=== PATIENT | female | born 1955 | race Caucasian/White ===

== ENCOUNTER 2017-12-13 06:17 | Day surgery (SDC) | payer OTHER, SELFPAY ==
--- NOTE | 2017-12-13 | PATH_ITS ---
[facility] Accession Number: [id number] . 01 Material submitted: . PART A: ANTRAL BIOPSIES PART B: ESOPHAGEAL BIOPSIES PART C: RANDOM COLON BIOPSIES PART D: LEFT COLON POLYP AT 40 CM . 02 Diagnosis: A. Antrum, Biopsies: Gastric antral and body mucosa with chronic gastritis. Negative for Helicobacter organisms by immunohistochemistry. Negative for intestinal metaplasia. Negative for dysplasia and malignancy. . B. Esophagus, Biopsies: Squamous epithelium with parakeratosis. Negative for fungal organisms on PAS stain. 0-1 eosinophils per 40x high-powered field. Negative for dysplasia and malignancy. . C. Random Colon, Biopsies: Colonic mucosa with no diagnostic abnormality. Negative for active or microscopic colitis. Negative for granulomata, dysplasia and malignancy. . D. Left Colon Polyp At 40 CM: Tubular adenoma. BFI12/15/2017 . 02 Electronically signed: . Azma Ortega MD, PhD, Pathologist NPI- [id number] . 01 Gross description: . Received four formalin-filled containers each labeled with the patient's name. . A. In a container labeled antral are four 0.1 to 0.3 cm portions of tissue. Entirely submitted in cassette A. B. In a container labeled esophageal are three less than 0.1 to 0.2 cm portions of tissue and mucoid material. Entirely submitted in cassette B. C. In a container labeled random colon are multiple less than 0.1 to 0.2 cm portions of tissue, which are filtered, wrapped and entirely submitted in cassette C. D. In a container labeled left colon polyp at 40 cm are two 0.2 to 0.3 cm portions of tissue. Entirely submitted in cassette D. ([facility] [place]:[id number]) /[facility] . 02 Microscopic: . A. An immunohistochemical stain is performed to evaluate for Helicobacter organisms and is negative. A control stain shows appropriate reactivity. . B. A PAS stain is performed to evaluate for fungal organisms and is negative. A control stain shows appropriate reactivity. . * This test was developed and its performance characteristics determined by [facility]. It has not been cleared or approved by the U.S. Food and Drug Administration. The FDA has determined that such clearance or approval is not necessary. This test is used for clinical purposes. It should not be regarded as investigational or for research. . 02 Pathologist provided ICD-10: K29.70, D12.6 . 02 CPT . 650598, 848892, 741415, 495406, F20919, 552407 Performed at: 01 [facility] [address] [id number] MD Oswaldo Cuadra MD Phone: [phone] Performed at: 02 [facility] [address] [place] [id number] MD David Castillo MD Phone: [phone]
[2017-12-13 06:57] VITALS: BP 130/77; PULSE 72; RESP 16; TEMP 36.3; BMI 29.5
[2017-12-13] MEDS: SODIUM CHLORIDE 0.9% 1,000 ML 200 ML IV (07:07)
--- NOTE | 2017-12-13 07:58 | PM.HP.1 ---
History of Present Illness Date Patient Seen: 12/13/17 Time Patient Seen: 07:58 Chief complaint: [id number] Narrative: 62-year-old female seen November 04, 2017 in the office as an outpatient for persistent intermittent nausea and regurgitation of food. Symptoms appear to be related to her longstanding reflux disease which is intermittently controlled with histamine cherelle therapy only. She also requires colorectal screening since it has been 10 years from her last examination. Currently she denies any abdominal pain, unintended weight loss, significant change in bowel habits, melena, hematochezia, or bright red blood per rectum. Please see the above record dictated November 04, 2017 for further details. Patient History Medical History Insomnia, persistent (Chronic) Obstructive sleep apnea of adult (Chronic) Chronic low back pain (Acute) Uterine fibroid (Acute) Gastroesophageal reflux disease (Chronic) Hyperlipidemia (Chronic) Mild acid reflux (Chronic) PVC (premature ventricular contraction) (Chronic) Seasonal allergies (Chronic) Surgical History H/O hysterectomy for benign disease (Acute) History of colonoscopy (Acute) History of right breast biopsy (Acute) Family & Social History Family History: Reviewed 12/13/17 by Jean Liang MD Social History: household members spouse Tobacco & Substance use: Smoking Status Never smoker alcohol intake never Meds Home Medications Medication Instructions Recorded Confirmed Type estradiol 2 mg PO Q DAY #0 05/25/11 11/09/17 History medroxyprogesterone 2.5 mg PO Q DAY #0 05/25/11 11/09/17 History aspirin 81 mg tablet,delayed 81 mg PO DAILY 11/04/17 11/09/17 History release cholecalciferol (vitamin D3) 4,000 4,000 unit PO DAILY 11/04/17 11/09/17 History unit capsule diazepam 5 mg tablet 5 mg PO BID-TID PRN 11/04/17 11/09/17 History fluticasone NASAL 11/04/17 11/09/17 History lamotrigine 25 mg tablet 25 mg PO BID 11/04/17 11/09/17 History loratadine 10 mg capsule 10 mg PO DAILY 11/04/17 11/09/17 History multivitamin tablet 1 tab PO DAILY 11/04/17 11/09/17 History simvastatin 20 mg tablet 20 mg PO QPM 11/04/17 11/09/17 History Allergies Allergy/AdvReac Type Severity Reaction Status Date / Time codeine [CODEINE] Allergy Mild HIVES Unverified 12/13/17 06:45 venom-honey bee Allergy Verified 12/13/17 06:45 Review of Systems Review of Systems Complete review of systems completed in dated November 04, 2017. No changes since that time. Please see that record for further details. All systems reviewed & are unremarkable except as noted in HPI and below Exam Vital Signs (past 8 hours): - 12/13/17 06:57 Temperature 97.3 F L Pulse Rate 72 Respiratory Rate 16 Blood Pressure 130/77 H Oxygen Delivery Method Room Air Narrative Exam Narrative: Well-nourished well-developed female in no acute distress. Alert oriented x3 Sclera nonicteric Neck supple Chest clear to auscultation Abdomen soft, nondistended, nontender Extremities show no clubbing, cyanosis, or edema Objective Labs Labs: No changes since November 04, 2017 Assessment & Plan Plan: Assessment/Plan Narrative: 62-year-old female with reflux disease and regurgitation. She also requires colorectal screening. Again, the details of my discussion with the patient are documented clearly on my note of November 04, 2017. I reiterate today my recommendations for EGD and colonoscopy. Technical details of the procedures were again reviewed with the patient. Risks, benefits, alternatives as documented in my note of November 04, 2017 were again reviewed today with the patient. Her was at the bedside. All questions were answered to her satisfaction once again, and she voiced understanding. Consent was on the chart and updated. We will proceed today with EGD and colonoscopy as planned.
--- NOTE | 2017-12-13 08:01 | PM.PREOP ---
Pre-operative Note Interval Note Pre-op Check: Yes History & Physical Reviewed by Physician, Yes Exam Performed and Yes History & Physical exam performed today by Physician Changes: No H&P completed within 30 days and has changed as indicated here:: Patient once again seen and examined today. Her history physical examination has been documented today. Of note, there have been no significant changes since my initial examination and history documented on November 04, 2017. We will proceed with EGD and colonoscopy today as planned. ASA Class (for procedural sedation): II
[2017-12-13] MEDS: TETRACAINE/BENZOCAINE/BUTAMBEN (CETACAINE) BOTTLE 1 SPRAY TOP (08:40)
[2017-12-13] MEDS: LIDOCAINE 4% SOLN 50 ML 20 ML TOP (08:41)
[2017-12-13] MEDS: fentaNYL 250 MCG/5 ML INJ IV (08:42)
[2017-12-13] MEDS: MIDAZOLAM 5 MG/5 ML VIAL IV (08:44)
--- NOTE | 2017-12-13 09:04 | PM.OP.ENDO ---
Operative Date/Time/Diagnoses Date of procedure: 12/13/17 Time of procedure: 09:04 Pre-op diagnosis: 1. Nausea, reflux, and regurgitation 2. Colorectal screening Post-op diagnosis: other (1. Significant erosive gastritis and mild esophagitis 2. Colon polyp at 40 cm) Procedure & Clinicians Study performed: 1. Esophagogastroduodenoscopy with biopsy 2. Colonoscopy with cold forceps polypectomy and random biopsies Same procedure as scheduled: Yes Indications: 62-year-old female who presented with intractable intermittent nausea and regurgitation of food. Occasional vomiting was also noted. She required colorectal screening since it was 10 years from her last exam as well. She was therefore recommended to undergo EGD and colonoscopy. Surgeon: Jean Liang Procedure Notes SCOAP/Timeout: Yes Procedure in detail: After obtaining informed consent the patient was brought to the endoscopy suite and attached all appropriate cardiopulmonary monitors. Nasal cannula oxygen was applied. Oropharynx was anesthetized with topical anesthetic. Patient was placed in left lateral decubitus position and a bite block was inserted. SCOAP time out was performed per standard protocol. Intravenous sedation was achieved per the surgeon using fentanyl and Versed. Gastroscope was inserted over the tongue to the oropharynx where the upper esophageal sphincter was identified. Esophagus was easily intubated and the scope was advanced under direct visualization of the esophageal lumen into the stomach which insufflated easily with air. There was noted to be some scant old blood present but no obvious gastric ulcers or neoplasms. Diffuse moderate gastritis was noted. Gastritis appeared to be most pronounced in the antrum and incisura. Pylorus was grossly normal and widely patent. Pylorus was easily intubated and the scope was advanced to the 2nd portion the duodenum. Mild duodenitis was noted but no peptic ulcers or other abnormalities. Scope was slowly withdrawn and the duodenum was meticulously and circumferentially examined. No other abnormalities were appreciated. The bulb of the duodenum was without disease. Scope was withdrawn back into the stomach where retroflexed view showed no hiatal hernia. Again findings are as above. Antral biopsies were taken. Stomach was suctioned of fluid and air and the scope withdrawn into the esophagus. Z-line was located at 30 8 cm from the incisors. Esophagus was slowly meticulously examined circumferentially as the scope was withdrawn. There was minimal esophagitis and biopsies were taken above the gastroesophageal junction. Hemostasis was verified. Scope was withdrawn through the mouth and this portion of the procedure was terminated. Bite block was removed. Patient was turned 180? for colonoscopy. Digital rectal examination revealed no masses or abnormalities. Colonoscope was inserted into the rectum and the bowel was insufflated with carbon dioxide. Under direct visualization of the colonic lumen the scope was advanced to the cecum where the appendiceal orifice and ileocecal valve were identified. Terminal ileum was intubated. I should note that the patient's colon was quite redundant and tortuous. She required multiple position maneuvers as well as abdominal pressure to achieve the cecum. Bowel preparation was adequate although some places required copious irrigation to be visualized. Terminal ileum was noted to be normal and the scope was slowly withdrawn. The colon was otherwise grossly normal but random biopsies were taken. She had a single polyp at 40 cm removed with cold forceps. Hemostasis was again verified. No other significant abnormalities including diverticulosis was identified. Retroflex view of the distal rectum and anus showed no other abnormalities or masses. No neoplasms. Internal hemorrhoids were normal. Scope was withdrawn and the procedure terminated. Patient taken recovery stable condition. Scope withdrawal time: 12:29 min Sedation minutes: 53 Findings: gastritis, polyp and other findings (Mild duodenitis) Specimen(s): other (1. Antral biopsies 2. Esophageal biopsies 3. Random colon biopsies 4. Colon polyp at 40 cm) Complications: none Recommendations: Colonscopy in 5 years, High fiber diet, No ASA/NSAIDS and Start medication(s) (Prescription for omeprazole) Plan for aftercare: 1. Discharge to home 2. Follow up in surgery Clinic in 1-2 weeks to discuss results Follow up: weeks (1-2 weeks in surgery clinic) Disposition: PACU
[2017-12-13 09:05] VITALS: BP 90/60; PULSE 72; RESP 14; TEMP 36.8; O2SAT 98
[2017-12-13 09:10] VITALS: BP 102/63; PULSE 68; RESP 14; O2SAT 98
[2017-12-13 09:18] VITALS: BP 101/62; PULSE 70; RESP 16; TEMP 36.2
--- NOTE | 2017-12-13 09:19 | SUR.PHASEII ---
DR PAGAN AT BEDSIDE SPEAKING WITH PT AND , PT TOLERATING PO JUICE AND CRACKERS.
[2017-12-13 09:35] VITALS: BP 105/70; PULSE 63; RESP 16; TEMP 36.2; O2SAT 100
== END 2017-12-13 09:41 | disposition home or self-care (01) ==
PROVIDERS: PCP Internal Medicine; Visit Provider Surgery
PROC: 0DJ08ZZ Inspection of Upper Intestinal Tract, Via Natural or Artificial Opening Endoscopic (ICD-10-PCS; CPT 43235; principal; 2017-12-13 07:45)
PROC: 0DJD8ZZ Inspection of Lower Intestinal Tract, Via Natural or Artificial Opening Endoscopic (ICD-10-PCS; CPT 45378; 2017-12-13 07:45)
DX: Z12.11 Encounter for screening for malignant neoplasm of colon (principal); K21.9 Gastro-esophageal reflux disease without esophagitis; K29.80 Duodenitis without bleeding; R11.10 Vomiting, unspecified; G47.33 Obstructive sleep apnea (adult) (pediatric); E78.5 Hyperlipidemia, unspecified; I49.3 Ventricular premature depolarization; D12.6 Benign neoplasm of colon, unspecified; K29.70 Gastritis, unspecified, without bleeding
CPT/HCPCS: 45380; 43239; 99152; 99153; J2250; J3010

== ENCOUNTER → 2018-03-31 08:09 | Outpatient (CLI) | payer OTHER, SELFPAY ==
--- NOTE | 2018-03-31 08:10 | DI.US.S_ITS ---
PROCEDURE: US ABDOMEN COMPLETE INDICATIONS: RIGHT UPPER QUADRANT PAIN WITH VOMITING TECHNIQUE: Real-time scanning was performed of the abdominal and retroperitoneal organs, with image documentation. COMPARISON: [facility], US, ABDOMEN COMPLETE, 05/26/2013, 8:37. FINDINGS: Liver: Liver is normal in size and homogeneous in echotexture. Gallbladder: No gallstones identified. Normal gallbladder wall. No pericholecystic fluid. Negative sonographic Flores sign. Biliary ducts: Intrahepatic bile ducts are non-dilated. Extrahepatic bile duct caliber measures 6.0 mm. Normal is 6-7 mm or less in diameter, or 10 mm or less post-cholecystectomy. Pancreas: Visualized portions of the pancreas are sonographically normal. Spleen: Spleen is normal in size and homogeneous in echotexture. Kidneys: Kidneys are normal in size and echotexture. Right kidney measures 11.1 cm long; left kidney measures 12.2 cm long. No hydronephrosis or nephrolithiasis. No solid masses. Aorta: Visualized aorta is normal in caliber at less than 3 cm. Iliacs: Proximal common iliac arteries are normal in caliber at less than 2.5 cm. IVC: Intrahepatic inferior vena cava is patent. Miscellaneous: No free abdominal fluid. IMPRESSION: No source for right upper quadrant pain identified. Dictated by: Westley Griffith [facility] Interpreted: John Mayfield MD on 03/31/2018 at 8:59 Approved by: John Mayfield M.D. on 04/01/2018 at 13:05
== END ==
PROVIDERS: PCP Internal Medicine; Visit Provider Surgery
DX: R10.11 Right upper quadrant pain (principal); R11.10 Vomiting, unspecified
CPT/HCPCS: 76700

== ENCOUNTER → 2018-04-18 07:56 | Outpatient (CLI) | payer OTHER, SELFPAY ==
--- NOTE | 2018-04-18 | DI.MG.S_ITS ---
BILATERAL DIGITAL SCREENING MAMMOGRAM 3D/2D WITH CAD: 04/18/2018 CLINICAL: Routine screening. Comparison is made to exams dated: 03/31/2017 mammogram, 02/07/2016 mammogram, and 01/14/2015 mammogram - [facility]. The tissue of both breasts is heterogeneously dense. This may lower the sensitivity of mammography. Current study was also evaluated with a Computer Aided Detection (CAD) system. There are benign post operative findings in the left breast. There is a mole marker on both breasts. No significant masses, calcifications, or other findings are seen in either breast. There has been no significant interval change. IMPRESSION: There is no mammographic evidence of malignancy. A 1 year screening mammogram is recommended. This exam was interpreted at Station ID: [id number]. NOTE: For mammograms, a report in lay terms will be sent to the patient. Approximately 15% of breast malignancies will not be visualized mammographically. In the management of a palpable breast mass, a negative mammogram must not discourage biopsy of a clinically suspicious lesion. Electronically Signed By: Cristian michael/nancie:04/18/2018 17:31:26 letter sent: Normal Exam ACR BI-RADS Category 2: Benign Finding(s) 3342F
== END ==
PROVIDERS: PCP Physician Assistant; Visit Provider Physician Assistant
DX: Z12.31 Encounter for screening mammogram for malignant neoplasm of breast (principal)
CPT/HCPCS: 77063; 77067

== ENCOUNTER → 2018-05-18 17:08 | Outpatient (CLI) | payer OTHER, SELFPAY ==
[2018-05-18 18:10] LABS: Estimated Glomerular Filt Rate > 60.0 mL/min (>60)
== END ==
PROVIDERS: PCP Physician Assistant; Visit Provider Internal Medicine Gastroenterology
DX: Z01.812 Encounter for preprocedural laboratory examination (principal)
CPT/HCPCS: 36415; 82565

== ENCOUNTER → 2018-11-22 07:23 | Outpatient (CLI) | payer OTHER, SELFPAY ==
[2018-11-22 08:12] LABS: Add Manual Diff / Slide Review NO; Basophils Absolute Auto 0 /uL (0-100); Basophils Percent Auto 1.2 % (0-2); Eosinophils Absolute Auto 100 /uL (0-450); Eosinophils Percent Auto 2.4 % (2-4); Hematocrit 36.8 % (36-46); Hemoglobin 12.5 g/dL (12.0-16.0); Lymphocytes Absolute Auto 1200 /uL (1100-4500); Lymphocytes Percent Auto 32.5 % (25-40); Mean Corpuscular HGB Conc 33.9 % (30-36); Mean Corpuscular Hemoglobin 33.6 PG (26-34); Monocytes Absolute Auto 300 /uL (0-900); Monocytes Percent Auto 9.1 % (3-14); Neutrophils Absolute Auto 2000 /uL (1500-7000); Neutrophils Percent Auto 54.8 % (50-75); Platelet Count 217 X10^3/uL (150-400); Red Blood Cell Count 3.72 X10^6/uL (4.0-5.2); Red Cell Distribution Width 12.9 % (11.6-14.8); White Blood Cell Count 3.7 X10^3/uL (4.5-11.0)
[2018-11-22 08:14] LABS: Alanine Aminotransferase 12 IU/L (9-52); Albumin 4.2 g/dL (3.5-5.0); Albumin Globulin Ratio 1.4 (1.0-2.8); Alkaline Phosphatase 90 U/L (38-126); Aspartate Aminotransferase 22 IU/L (14-36); Bilirubin Total 0.4 mg/dL (0.2-1.3); Blood Urea Nitrogen 12 mg/dL (7-17); Calcium 9.4 mg/dL (8.4-10.2); Carbon Dioxide 27 mmol/L (22-32); Chloride 104 mmol/L (98-107); Cholesterol 175 mg/dL (140-199); Estimated Glomerular Filt Rate > 60.0 mL/min (>60); Glucose 84 mg/dL (80-110); HDL Cholesterol 58 mg/dL (40-60); HEMOLYSIS < 15 (0-50); LDL Cholesterol Calculated 88 mg/dL (<100); Potassium 3.8 mmol/L (3.4-5.1); Sodium 140 mmol/L (137-145); Total Protein 7.2 g/dL (6.3-8.2); Triglycerides 143 mg/dL (35-150)
== END ==
PROVIDERS: PCP Physician Assistant; Visit Provider Physician Assistant
DX: E78.2 Mixed hyperlipidemia (principal); E83.42 Hypomagnesemia
CPT/HCPCS: 36415; 80053; 80061; 83735; 85025

== ENCOUNTER → 2018-12-21 09:11 | Outpatient (CLI) | payer OTHER, SELFPAY ==
--- NOTE | 2018-12-21 | DI.ECHO.S_ITS ---
[facility] +---------+ : : [address] : : : : [address] : : : : Phone: [phone]+ Echocardiogram Report + + :Name: NILDA SHIRLEY Study Date: 12/21/2018 Height: 69 in : :[facility] Exam Location: [facility] Weight: 210 lb : : Gender: Female BSA: 2.1 m2 : :: 1955 Age: 63 yrs BP: 116/68 mmHg: :Reason For Study: PRE SYNCOPE : : Performed By: Christiano Powers : :Referring: SPENCER TEE : + + Interpretation Summary There is normal left ventricular wall thickness. The ejection fraction is estimated to be 60-65%. There are no focal wall motion abnormalities. Diastolic parameters suggest a relaxation abnormality of the left ventricle, consistent with probable normal filling pressures. The right ventricle is normal in size and function. Pulmonary artery pressures cannot be estimated because of the lack of a measurable TR jet velocity. The left atrium is mildly dilated. Right atrial size is normal. There is no significant valvular heart disease. The aortic root is normal size. Procedure: A two-dimensional transthoracic echocardiogram with color flow and Doppler was performed. The study quality was technically good. There is no prior echocardiogram noted for this patient. The patient was in normal sinus rhythm during the exam. Left Ventricle: There is normal left ventricular wall thickness. Left ventricular size is at the upper limits of normal. The ejection fraction is estimated to be 60-65%. There are no focal wall motion abnormalities. Diastolic parameters suggest a relaxation abnormality of the left ventricle, consistent with probable normal filling pressures. Right Ventricle: The right ventricle is normal in size and function. Atria: The left atrium is mildly dilated. Right atrial size is normal. The interatrial septum is intact with no evidence for an atrial septal defect. Mitral Valve: The mitral valve is normal in structure and function. There is no mitral regurgitation noted. Aortic Valve: The aortic valve is trileaflet. The aortic valve opens well. No aortic regurgitation is present. Tricuspid Valve: The tricuspid valve is normal in structure and function. No tricuspid regurgitation. Pulmonary artery pressures cannot be estimated because of the lack of a measurable TR jet velocity. Pulmonic Valve: The pulmonic valve is normal in structure and function. There is trace pulmonic regurgitation. There is no significant valvular heart disease. Great Vessels: The aortic root is normal size. The dimensions of the ascending aorta are normal. The aortic arch is at the upper limits of normal in size. The pulmonary artery is normal size. The IVC is of normal diameter and collapses greater than 50% with a sniff. This suggests a low right atrial pressure of 3 mm Hg. Pericardium/ Pleura There is no pericardial effusion. There is no pleural effusion. MMode/2D Measurements & Calculations LVIDd: 5.8 cm LVOT diam: 2.2 cm LVIDs: 3.2 cm Ao root diam: 3.4 cm FS: 43.8 % Aortic Jxn: 2.9 cm EPSS: 0.70 cm asc Aorta Diam: 3.3 cm IVSd: 0.82 cm Ao Arch Diam (Prox Trans): 3.1 cm LVPWd: 0.87 cm LV cardoso. diameter/BSA (cm/m^2): 2.7 LV sys. diameter/BSA (cm/m^2): 1.5 LA dimension: 4.3 cm RA long axis: 5.1 cm LA A2 area: 25.2 cm2 RA area: 16.8 cm2 LA A4 area: 22.9 cm2 RA vol: 46.7 ml LA length (vol): 5.7 cm RA : 22.1 ml/m2 LA vol: 86.2 ml IVC diam: 1.5 cm LA vol index: 40.9 ml/m2 Doppler Measurements & Calculations Ao V2 max: 126.7 cm/sec LVOT Max Blaise: 107.9 cm/sec Ao V2 mean: 88.5 cm/sec LV V1 max P.7 mmHg Ao max P.4 mmHg LV V1 VTI: 25.2 cm Ao mean P.5 mmHg NIALL(I,D): 3.5 cm2 Ao V2 VTI: 28.0 cm NIALL(V,D): 3.3 cm2 sev ratio: 0.90 NIALL indexed to BSA (cm^2/m^2): 1.7 MV E max blaise: 57.3 cm/sec PA V2 max: 66.9 cm/sec MV A max blaise: 69.5 cm/sec PA V2 mean: 52.7 cm/sec MV E/A: 0.83 PA mean P.2 mmHg Med Peak E' Blaise: 8.1 cm/sec PA pr(Accel): 26.6 mmHg E/E' med: 7.1 PA Accel Time: 0.11 sec Lat Peak E' Blaise: 9.9 cm/sec E/E' lat: 5.8 E/e' average: 6.5 MV dec time: 0.20 sec SV(LVOT): 98.6 ml Reading Physician:12:08 PM
[2018-12-21 10:42] LABS: Add Manual Diff / Slide Review NO; Basophils Absolute Auto 0 /uL (0-100); Basophils Percent Auto 0.7 % (0-2); Eosinophils Absolute Auto 100 /uL (0-450); Eosinophils Percent Auto 1.7 % (2-4); Hematocrit 38.7 % (36-46); Lymphocytes Absolute Auto 1300 /uL (1100-4500); Lymphocytes Percent Auto 22.8 % (25-40); Mean Corpuscular HGB Conc 33.6 % (30-36); Mean Corpuscular Hemoglobin 31.8 PG (26-34); Mean Corpuscular Volume 94.6 fL (80-100); Monocytes Absolute Auto 500 /uL (0-900); Monocytes Percent Auto 8.9 % (3-14); Neutrophils Absolute Auto 3800 /uL (1500-7000); Neutrophils Percent Auto 65.9 % (50-75); Platelet Count 241 X10^3/uL (150-400); Red Blood Cell Count 4.09 X10^6/uL (4.0-5.2); Red Cell Distribution Width 12.9 % (11.6-14.8); White Blood Cell Count 5.8 X10^3/uL (4.5-11.0)
== END ==
PROVIDERS: PCP Physician Assistant; Visit Provider Internal Medicine
DX: R55 Syncope and collapse (principal); D72.829 Elevated white blood cell count, unspecified
CPT/HCPCS: 36415; 85025; 93306

== ENCOUNTER 2019-03-23 15:12 | Emergency (ER) | payer OTHER, SELFPAY ==
[2019-03-23 15:16] VITALS: BP 155/87; PULSE 87; RESP 18; TEMP 36.4; O2SAT 100
[2019-03-23 15:58] LABS: Add Manual Diff / Slide Review NO; Basophils Absolute Auto 0 /uL (0-100); Basophils Percent Auto 0.5 % (0-2); Eosinophils Absolute Auto 0 /uL (0-450); Eosinophils Percent Auto 0.8 % (2-4); Hematocrit 39.5 % (36-46); Hemoglobin 13.7 g/dL (12.0-16.0); Lymphocytes Absolute Auto 600 /uL (1100-4500); Lymphocytes Percent Auto 13.2 % (25-40); Mean Corpuscular HGB Conc 34.6 % (30-36); Mean Corpuscular Hemoglobin 31.4 PG (26-34); Mean Corpuscular Volume 90.7 fL (80-100); Monocytes Absolute Auto 400 /uL (0-900); Monocytes Percent Auto 8.6 % (3-14); Neutrophils Absolute Auto 3800 /uL (1500-7000); Neutrophils Percent Auto 76.9 % (50-75); Platelet Count 202 X10^3/uL (150-400); Red Blood Cell Count 4.36 X10^6/uL (4.0-5.2); White Blood Cell Count 4.9 X10^3/uL (4.5-11.0)
--- NOTE | 2019-03-23 15:58 | ED_ITS ---
HPI - Abdominal Pain <Magda BETH Stanley-BC - Last Filed: 03/23/19 18:25> General Chief Complaint: Abdominal Pain Stated Complaint: GI issues- nausea/bloating Time Seen by Provider: 03/23/19 15:17 Source: patient Mode of arrival: Ambulatory Limitations: no limitations History of Present Illness HPI narrative: The patient is a 63-year-old female nonsmoker who presents with her for chief complaint of abdominal pain and bloating with nausea. She states that she has had these episodes on and off for the past several years, that it has been getting worse recently. She states that she has had abdominal pain bloating and nausea since Wednesday. She has vomited once. She denies any fevers. She states that she sees [facility] in [place] and has had multiple and discussed these, colonoscopy is etc. She states that her gallbladder is been looked at and found to be okay. She denies any dysuria urgency or frequency. She states that she has been told that she needs to come to the emergency department to be evaluated if she has 1 of these episodes, and preferably obtain a CT abdomen pelvis with contrast. She states her next step is to get a balloon endoscope. Related Data Home Medications Medication Instructions Recorded Confirmed medroxyprogesterone 2.5 mg PO Q DAY #0 05/25/11 01/20/19 cholecalciferol (vitamin D3) 4,000 4,000 unit PO DAILY 11/04/17 01/20/19 unit capsule diazepam 5 mg tablet 5 mg PO BID-TID PRN 11/04/17 01/20/19 fluticasone NASAL 11/04/17 01/20/19 loratadine 10 mg capsule 10 mg PO DAILY 11/04/17 01/20/19 multivitamin 1 tab PO DAILY 11/04/17 01/20/19 simvastatin 20 mg tablet 20 mg PO QPM 11/04/17 01/20/19 Respironics Remstar CPAP #1 ea 01/23/19 01/23/19 Previous Rx's Medication Instructions Recorded omeprazole 40 mg PO DAILY #60 cap 12/13/17 ondansetron 4 mg PO Q6H PRN #14 tab 03/23/19 Allergies Allergy/AdvReac Type Severity Reaction Status Date / Time codeine [CODEINE] Allergy Mild HIVES Verified 12/29/17 09:14 venom-honey bee Allergy Verified 12/29/17 09:14 Review of Systems <GREGG Cooney - Last Filed: 03/23/19 18:25> Review of Systems Narrative: GENERAL: Denies chills, fatigue, malaise, fever, sweats. HEENT: Denies sinus pain, ear pain, sore throat, difficulty swallowing, dizziness. RESPIRATORY: Denies dyspnea, cough, wheezing, hemoptysis, sputum. CARDIOVASCULAR: Denies chest pain, palpitations, orthopnea, edema, GASTROINTESTINAL: See HPI : Denies dysuria, frequency, incontinence, hematuria, urinary retention. MUSCULOSKELETAL: denies weakness, joint pain, or bony pain SKIN: Denies rash, skin lesions, or other NEUROLOGIC: Denies weakness, headache, numbness, change in speech, confusion, seizures, incoordination. PSYCHIATRIC: No concerning psychosocial issues. 12 point review of systems is negative except for those stated above Patient History <GREGG Cooney - Last Filed: 03/23/19 18:25> Medical History Chronic low back pain (Acute) Gastroesophageal reflux disease (Chronic) Hyperlipidemia (Chronic) Insomnia, persistent (Chronic) Mild acid reflux (Chronic) Obstructive sleep apnea of adult (Chronic) PVC (premature ventricular contraction) (Chronic) Seasonal allergies (Chronic) Uterine fibroid (Acute) Surgical History H/O hysterectomy for benign disease (Acute) History of colonoscopy (Acute) History of right breast biopsy (Acute) Family History Mother Hypertension Family/Other Cancer Father Cancer Brother Diabetes mellitus Grandfather Diabetes mellitus Grandmother Cancer Social History marital status: details: bright Carlos, lives in [place] household members: spouse lives independently: Yes caregiver/support person: No housing: house education level: college occupational status: employed Smoking Status: Never smoker alcohol intake: never Substance Use Type: does not use Exam <GREGG Cooney - Last Filed: 03/23/19 18:25> Narrative Exam Narrative: GENERAL: This is a well-nourished, well-developed patient, in no acute distress HEAD: Atraumatic. Normocephalic. No temporal or scalp tenderness. EYES: Pupils equal round and reactive. Extraocular motions intact. No scleral icterus. No injection or drainage. ENT: Nose without bleeding, purulent drainage or septal hematoma. Throat without erythema, tonsillar hypertrophy or exudate. Uvula midline. Airway patent. NECK: Trachea midline. No JVD or lymphadenopathy. Supple, nontender, no meningeal signs. CARDIOVASCULAR: Regular rate and rhythm without murmurs, gallops, or rubs. RESPIRATORY: Clear to auscultation. Breath sounds equal bilaterally. No wheezes, rales, or rhonchi. No cough. No increased respiratory effort. No accessory muscle use. GASTROINTESTINAL: Abdomen soft, diffusely tender, nondistended. No hepato- splenomegaly, or palpable masses. No guarding. EXTREMITIES: No clubbing, cyanosis, or edema. No joint tenderness, effusion, or edema noted. BACK: Nontender without deformity or crepitance. No flank tenderness. NEURO: AOx3. SKIN: No rash or erythema on visible skin Initial Vital Signs Initial Vital Signs: Vital Signs Temperature 97.5 F L 03/23/19 15:16 Pulse Rate 87 03/23/19 15:16 Respiratory Rate 18 03/23/19 15:16 Blood Pressure 155/87 H 03/23/19 15:16 Pulse Oximetry 100 03/23/19 15:16 <Sofia Giron MD - Last Filed: 03/29/19 07:38> Initial Vital Signs Initial Vital Signs: Vital Signs Temperature 97.5 F L 03/23/19 15:16 Pulse Rate 87 03/23/19 15:16 Respiratory Rate 18 03/23/19 15:16 Blood Pressure 155/87 H 03/23/19 15:16 Pulse Oximetry 100 03/23/19 15:16 Course <BETH Cooney- - Last Filed: 03/23/19 18:25> Orders Ordered: Discontinued Medications Sodium Chloride (Normal Saline 0.9%) 1,000 mls @ 150 mls/hr IV CONT YOSEPH Last Infusion: 03/23/19 18:27 Dose: 0 mls/hr Documented by: Admin: 03/23/19 16:04 Dose: 150 mls/hr Documented by: MARIO Ondansetron HCl (Zofran) 4 mg IV NOW ONE Stop: 03/23/19 15:50 Last Admin: 03/23/19 16:04 Dose: 4 mg Documented by: MARIO Ondansetron HCl (Zofran Odt Prepack) 1 bottle MISC SEEINSTR ONE Stop: 03/23/19 18:00 Last Admin: 03/23/19 18:28 Dose: 1 bottle Documented by: MARIO Vital Signs Vital signs: Vital Signs - 8 hr 03/23/19 15:16 03/23/19 18:11 Temperature 97.5 F L Pulse Rate 87 67 Respiratory Rate 18 18 Blood Pressure 155/87 H Blood Pressure [Left Arm] 111/59 L Pulse Oximetry 100 98 <Sofia Giron MD - Last Filed: 03/29/19 07:38> Orders Ordered: Discontinued Medications Sodium Chloride (Normal Saline 0.9%) 1,000 mls @ 150 mls/hr IV CONT YOSEPH Last Infusion: 03/23/19 18:27 Dose: 0 mls/hr Documented by: Admin: 03/23/19 16:04 Dose: 150 mls/hr Documented by: MARIO Ondansetron HCl (Zofran) 4 mg IV NOW ONE Stop: 03/23/19 15:50 Last Admin: 03/23/19 16:04 Dose: 4 mg Documented by: MARIO Ondansetron HCl (Zofran Odt Prepack) 1 bottle MISC SEEINSTR ONE Stop: 03/23/19 18:00 Last Admin: 03/23/19 18:28 Dose: 1 bottle Documented by: MARIO Vital Signs Vital signs: Vital Signs - 8 hr 03/23/19 15:16 03/23/19 18:11 Temperature 97.5 F L Pulse Rate 87 67 Respiratory Rate 18 18 Blood Pressure 155/87 H Blood Pressure [Left Arm] 111/59 L Pulse Oximetry 100 98 MDM - Abdominal Pain <GREGG Cooney - Last Filed: 03/23/19 18:25> Lab Data Result diagrams: 03/23/19 15:45 03/23/19 15:45 Labs: Lab Results 03/23/19 03/23/19 Range/Units 15:45 15:45 WBC 4.9 (4.5-11.0) X10^3/uL RBC 4.36 (4.0-5.2) X10^6/uL Hgb 13.7 (12.0-16.0) g/dL Hct 39.5 (36-46) % MCV 90.7 (80-100) fL MCH 31.4 (26-34) PG MCHC 34.6 (30-36) % RDW 13.0 (11.6-14.8) % Plt Count 202 (150-400) X10^3/uL Neut % (Auto) 76.9 H (50-75) % Lymph % (Auto) 13.2 L (25-40) % [place] % (Auto) 8.6 (3-14) % Eos % (Auto) 0.8 L (2-4) % Baso % (Auto) 0.5 (0-2) % Neut # (Auto) 3800 (8184-2469) /uL Lymph # (Auto) 600 L (8920-7203) /uL [place] # (Auto) 400 (0-900) /uL Eos # (Auto) 0 (0-450) /uL Baso # (Auto) 0 (0-100) /uL Sodium 137 (137-145) mmol/L Potassium 3.4 (3.4-5.1) mmol/L Chloride 103 (98-107) mmol/L Carbon Dioxide 28 (22-32) mmol/L BUN 9 (7-17) mg/dL Creatinine 0.70 (0.52-1.04) mg/dL Estimated GFR > 60.0 (>60) mL/min BUN/Creatinine Ratio 12.9 (6-22) Glucose 100 (80-110) mg/dL Calcium 9.0 (8.4-10.2) mg/dL Total Bilirubin 0.5 (0.2-1.3) mg/dL AST 44 H (14-36) IU/L ALT 36 H (<35) IU/L Alkaline Phosphatase 84 (38-126) U/L Total Protein 7.0 (6.3-8.2) g/dL Albumin 4.2 (3.5-5.0) g/dL Globulin 2.8 (1.7-4.1) g/dL Albumin/Globulin Ratio 1.5 (1.0-2.8) Amylase 79 (30-110) U/L Lipase 46 (23-300) U/L Imaging Data CT scan - abdomen: Radiologist's impression: [address] [address] [address] Scan Report Signed Patient: Frannie Adhikari JMR#: [id number] : 4Acct:[id number] Age/Sex: 63 / FDate of Service: 03/23/19 Loc: ED Accession Number: [id number] Procedure: CT abdomen pelvis w con Ordering Provider: Magda Stanley EDITORIAL CARTOONIST-BC PROCEDURE: CT ABDOMEN PELVIS W CON INDICATIONS: Abdominal pain, bloating TECHNIQUE: After the administration of intravenous contrast, 5 mm thick sections acquired from the diaphragms to the symphysis. 5 mm thick coronal and sagittal reformats were performed. For radiation dose reduction, the following was used: automated exposure control, adjustment of mA and/or kV according to patient size. COMPARISON: None. FINDINGS: Image quality: Excellent. ABDOMEN: Lung bases: There is mild atelectasis bilaterally. Heart size is normal. Solid organs: Evaluation of the liver demonstrates no focal hepatic lesions. The gallbladder appears within normal limits without calcified gallstones. Biliary system is non-dilated. Pancreas enhances normally. No peripancreatic fat stranding or fluid collections. No pancreatic duct dilatation. The spleen is normal in size. No adrenal nodules. Kidneys demonstrate no hydronephrosis. There is a duplicated left renal collecting system. Peritoneum and bowel: Stomach, small bowel, and colon loops are normal in caliber and wall thickness. The appendix is not discretely visualized and may be surgically absent. No pericecal inflammatory changes. There is colonic diverticulosis without acute diverticulitis. No free fluid or air. Nodes and vessels: No retroperitoneal or mesenteric adenopathy by size criteria. There are multiple mildly prominent subcentimeter mesenteric lymph nodes within the upper abdomen measuring up to approximately 0.9 cm in short axis. There is mild hazy indistinct fat stranding of the mesentery. Aorta and inferior vena cava are normal in caliber. Miscellaneous: No ventral hernias. PELVIS: Genitourinary: Bladder wall thickness is normal. There is moderate distention of the urinary bladder. There is a large heterogeneous mass within the right aspect of the uterus compatible with an intramural fibroid. This measures up to approximately 7.3 x 5.0 x 7.1 cm. Miscellaneous: No inguinal hernias or adenopathy. Bones: No suspicious bony lesions. No vertebral body compression fractures. IMPRESSION: 1. Prominent subcentimeter mesenteric lymph nodes with mild hazy fat stranding of the mesentery. The findings are nonspecific but likely reflect sequelae of an infectious or inflammatory process such as sclerosing mesenteritis. A neoplastic process is not excluded but considered less likely. 2. Duplicated left renal collecting system without hydronephrosis or definite s equelae of reflux. 3. Large uterine mass likely represents an intramural fibroid. Dictated by: Oswaldo Hinds M.D. on 03/23/2019 at 17:34 Approved by: Oswaldo Hinds M.D. on 03/23/2019 at 17:42 MDM Narrative Medical decision making narrative: The patient is a 63-year-old female who presents with a chief complaint of abdominal pain and bloating which has been worked up by Gastroenterology. She states that she is supposed to come to the emergency department for imaging if she has a flare. She is hemodynamically stable, does have pain to palpation so I did obtain imaging. I discussed at length the CT results including prominent lymph nodes, the inability to rule out neoplastic process. She did feel better with a single dose of Zofran in the emergency department, so I did give her prescription thereof. Encourage PCP follow-up in the next few days as well as following up with GI. Patient states appreciation, has no questions or concerns about half an states understanding of return precautions as well as follow-up care. She was able tolerate p.o. fluids in the emergency department. <Sofia Giron MD - Last Filed: 03/29/19 07:38> Lab Data Labs: Lab Results 03/23/19 03/23/19 Range/Units 15:45 15:45 WBC 4.9 (4.5-11.0) X10^3/uL RBC 4.36 (4.0-5.2) X10^6/uL Hgb 13.7 (12.0-16.0) g/dL Hct 39.5 (36-46) % MCV 90.7 (80-100) fL MCH 31.4 (26-34) PG MCHC 34.6 (30-36) % RDW 13.0 (11.6-14.8) % Plt Count 202 (150-400) X10^3/uL Neut % (Auto) 76.9 H (50-75) % Lymph % (Auto) 13.2 L (25-40) % [place] % (Auto) 8.6 (3-14) % Eos % (Auto) 0.8 L (2-4) % Baso % (Auto) 0.5 (0-2) % Neut # (Auto) 3800 (8799-6861) /uL Lymph # (Auto) 600 L (8178-6312) /uL [place] # (Auto) 400 (0-900) /uL Eos # (Auto) 0 (0-450) /uL Baso # (Auto) 0 (0-100) /uL Sodium 137 (137-145) mmol/L Potassium 3.4 (3.4-5.1) mmol/L Chloride 103 (98-107) mmol/L Carbon Dioxide 28 (22-32) mmol/L BUN 9 (7-17) mg/dL Creatinine 0.70 (0.52-1.04) mg/dL Estimated GFR > 60.0 (>60) mL/min BUN/Creatinine Ratio 12.9 (6-22) Glucose 100 (80-110) mg/dL Calcium 9.0 (8.4-10.2) mg/dL Total Bilirubin 0.5 (0.2-1.3) mg/dL AST 44 H (14-36) IU/L ALT 36 H (<35) IU/L Alkaline Phosphatase 84 (38-126) U/L Total Protein 7.0 (6.3-8.2) g/dL Albumin 4.2 (3.5-5.0) g/dL Globulin 2.8 (1.7-4.1) g/dL Albumin/Globulin Ratio 1.5 (1.0-2.8) Amylase 79 (30-110) U/L Lipase 46 (23-300) U/L Discharge Plan Departure Patient Disposition: Home Clinical Impression: Nausea Abdominal pain Qualifiers: Abdominal location: generalized Qualified Code(s): R10.84 - Generalized abdominal pain Discharge Date/Time: 03/23/19 18:40 Instructions: DI for Abdominal Pain-Adult, DI for Nausea -- Adult Activity Restrictions/Additional Instructions: Today we did a CT of your abdomen and pelvis. I have given you a copy of her results. I have given you a prescription of Zofran as well as a take-home pack Please follow up with primary care provider as well as your GI provider Prescriptions: New ondansetron 4 mg tablet,disintegrating 4 mg PO Q6H PRN (Reason: nausea and vomiting) Qty: 14 RF: 0 No Action medroxyprogesterone 2.5 MG tablet 2.5 mg PO Q DAY Qty: 0 RF: 0 simvastatin 20 mg tablet 20 mg PO QPM RF: 0 loratadine 10 mg capsule 10 mg PO DAILY RF: 0 fluticasone NASAL RF: 0 diazepam [Valium] 5 mg tablet 5 mg PO BID-TID PRN (Reason: Pain (Scale Score 4-6)) RF: 0 cholecalciferol (vitamin D3) 4,000 unit capsule 4,000 unit PO DAILY RF: 0 multivitamin [Daily Multi-Vitamin] tablet 1 tab PO DAILY RF: 0 omeprazole 40 mg capsule,delayed release(DR/EC) 40 mg PO DAILY Qty: 60 RF: 1 (DME) Respironics Remstar CPAP Qty: 1 RF: 0 Referrals: Arleth Cooper PA-C [Primary Care Provider] -
[2019-03-23 16:00] VITALS: BP 118/65; PULSE 70; RESP 16; O2SAT 98
[2019-03-23] MEDS: SODIUM CHLORIDE 0.9% 1,000 ML 150 ML IV (16:04)
[2019-03-23] MEDS: ONDANSETRON 4 MG/2 ML INJ IV (16:04)
[2019-03-23 16:09] LABS: Alanine Aminotransferase 36 IU/L (<35); Albumin 4.2 g/dL (3.5-5.0); Albumin Globulin Ratio 1.5 (1.0-2.8); Alkaline Phosphatase 84 U/L (38-126); Amylase 79 U/L (30-110); Aspartate Aminotransferase 44 IU/L (14-36); BUN Creatinine Ratio 12.9 (6-22); Bilirubin Total 0.5 mg/dL (0.2-1.3); Blood Urea Nitrogen 9 mg/dL (7-17); Carbon Dioxide 28 mmol/L (22-32); Chloride 103 mmol/L (98-107); Estimated Glomerular Filt Rate > 60.0 mL/min (>60); Globulin 2.8 g/dL (1.7-4.1); Glucose 100 mg/dL (80-110); HEMOLYSIS < 15 (0-50); Lipase 46 U/L (23-300); Potassium 3.4 mmol/L (3.4-5.1); Sodium 137 mmol/L (137-145)
--- NOTE | 2019-03-23 16:13 | DI.CT.S_ITS ---
PROCEDURE: CT ABDOMEN PELVIS W CON INDICATIONS: Abdominal pain, bloating TECHNIQUE: After the administration of intravenous contrast, 5 mm thick sections acquired from the diaphragms to the symphysis. 5 mm thick coronal and sagittal reformats were performed. For radiation dose reduction, the following was used: automated exposure control, adjustment of mA and/or kV according to patient size. COMPARISON: None. FINDINGS: Image quality: Excellent. ABDOMEN: Lung bases: There is mild atelectasis bilaterally. Heart size is normal. Solid organs: Evaluation of the liver demonstrates no focal hepatic lesions. The gallbladder appears within normal limits without calcified gallstones. Biliary system is non-dilated. Pancreas enhances normally. No peripancreatic fat stranding or fluid collections. No pancreatic duct dilatation. The spleen is normal in size. No adrenal nodules. Kidneys demonstrate no hydronephrosis. There is a duplicated left renal collecting system. Peritoneum and bowel: Stomach, small bowel, and colon loops are normal in caliber and wall thickness. The appendix is not discretely visualized and may be surgically absent. No pericecal inflammatory changes. There is colonic diverticulosis without acute diverticulitis. No free fluid or air. Nodes and vessels: No retroperitoneal or mesenteric adenopathy by size criteria. There are multiple mildly prominent subcentimeter mesenteric lymph nodes within the upper abdomen measuring up to approximately 0.9 cm in short axis. There is mild hazy indistinct fat stranding of the mesentery. Aorta and inferior vena cava are normal in caliber. Miscellaneous: No ventral hernias. PELVIS: Genitourinary: Bladder wall thickness is normal. There is moderate distention of the urinary bladder. There is a large heterogeneous mass within the right aspect of the uterus compatible with an intramural fibroid. This measures up to approximately 7.3 x 5.0 x 7.1 cm. Miscellaneous: No inguinal hernias or adenopathy. Bones: No suspicious bony lesions. No vertebral body compression fractures. IMPRESSION: 1. Prominent subcentimeter mesenteric lymph nodes with mild hazy fat stranding of the mesentery. The findings are nonspecific but likely reflect sequelae of an infectious or inflammatory process such as sclerosing mesenteritis. A neoplastic process is not excluded but considered less likely. 2. Duplicated left renal collecting system without hydronephrosis or definite sequelae of reflux. 3. Large uterine mass likely represents an intramural fibroid. Dictated by: Oswaldo Hinds M.D. on 03/23/2019 at 17:34 Approved by: Oswaldo Hinds M.D. on 03/23/2019 at 17:42
[2019-03-23 18:11] VITALS: BP 111/59; PULSE 67; RESP 18; O2SAT 98
[2019-03-23] MEDS: ONDANSETRON 4 MG ODT PREPACK 1 BOTTLE MISC (18:28)
== END 2019-03-23 18:40 | disposition home or self-care (01) ==
PROVIDERS: Emergency Provider Nurse Practitioner Family; PCP Physician Assistant
DX: R10.84 Generalized abdominal pain (principal); R11.0 Nausea
CPT/HCPCS: 36415; 74177; 80053; 82150; 83690; 85025; 96374; 99283; 99284; J2405; Q9967

== ENCOUNTER → 2019-04-15 08:47 | Outpatient (CLI) | payer OTHER, SELFPAY ==
[2019-04-15 09:59] LABS: Clostridium Difficile Tox PCR Negative for C. diff
[2019-04-15 10:12] LABS: BUN Creatinine Ratio 12.5 (6-22); Blood Urea Nitrogen 10 mg/dL (7-17); Calcium 9.8 mg/dL (8.4-10.2); Carbon Dioxide 28 mmol/L (22-32); Chloride 103 mmol/L (98-107); Estimated Glomerular Filt Rate > 60.0 mL/min (>60); Glucose 90 mg/dL (80-110); HEMOLYSIS < 15 (0-50); Sodium 140 mmol/L (137-145)
== END ==
PROVIDERS: PCP Physician Assistant; Visit Provider Physician Assistant
DX: A09 Infectious gastroenteritis and colitis, unspecified (principal)
CPT/HCPCS: 36415; 80048; 87045; 87493; 87899

== ENCOUNTER → 2019-05-31 08:11 | Outpatient (CLI) | payer OTHER, SELFPAY ==
--- NOTE | 2019-05-31 | DI.MG.S_ITS ---
BILATERAL DIGITAL SCREENING MAMMOGRAM 3D/2D WITH CAD: 05/31/2019 CLINICAL: Routine screening. Comparison is made to exams dated: 04/18/2018 mammogram, 03/31/2017 mammogram, and 02/07/2016 mammogram - [facility]. The tissue of both breasts is heterogeneously dense. This may lower the sensitivity of mammography. Current study was also evaluated with a Computer Aided Detection (CAD) system. There are benign post operative findings in the left breast. There is a mole marker on both breasts. No significant masses, calcifications, or other findings are seen in either breast. There has been no significant interval change. IMPRESSION: There is no mammographic evidence of malignancy. A 1 year screening mammogram is recommended. This exam was interpreted at Station ID: [id number]. NOTE: For mammograms, a report in lay terms will be sent to the patient. Approximately 15% of breast malignancies will not be visualized mammographically. In the management of a palpable breast mass, a negative mammogram must not discourage biopsy of a clinically suspicious lesion. Electronically Signed By: Oswaldo choudhury/nancie:05/31/2019 08:41:42 letter sent: Normal Exam ACR BI-RADS Category 2: Benign Finding(s) 3342F
== END ==
PROVIDERS: PCP Physician Assistant; Referring Provider Physician Assistant; Visit Provider Physician Assistant
DX: Z12.31 Encounter for screening mammogram for malignant neoplasm of breast (principal)
CPT/HCPCS: 77063; 77067

== ENCOUNTER → 2020-02-15 13:28 | Outpatient (ROUT) | payer OTHER, SELFPAY ==
[2020-02-15 13:45] LABS: Add Manual Diff / Slide Review NO; Basophils Absolute Auto 0 /uL (0-100); Basophils Percent Auto 0.5 % (0-2); Eosinophils Absolute Auto 100 /uL (0-450); Eosinophils Percent Auto 1.8 % (2-4); Hematocrit 37.2 % (36-46); Hemoglobin 12.8 g/dL (12.0-16.0); Lymphocytes Absolute Auto 1200 /uL (1100-4500); Lymphocytes Percent Auto 26.4 % (25-40); Mean Corpuscular HGB Conc 34.4 % (30-36); Mean Corpuscular Hemoglobin 34.2 PG (26-34); Mean Corpuscular Volume 99.4 fL (80-100); Monocytes Absolute Auto 400 /uL (0-900); Monocytes Percent Auto 9.2 % (3-14); Neutrophils Absolute Auto 2800 /uL (1500-7000); Neutrophils Percent Auto 62.1 % (50-75); Platelet Count 233 X10^3/uL (150-400); Red Blood Cell Count 3.74 X10^6/uL (4.0-5.2); Red Cell Distribution Width 12.9 % (11.6-14.8); White Blood Cell Count 4.5 X10^3/uL (4.5-11.0)
[2020-02-15 13:47] LABS: Alanine Aminotransferase 19 IU/L (<35); Albumin 4.2 g/dL (3.5-5.0); Albumin Globulin Ratio 1.5 (1.0-2.8); Alkaline Phosphatase 75 U/L (38-126); Aspartate Aminotransferase 27 IU/L (14-36); Bilirubin Total 0.5 mg/dL (0.2-1.3); Blood Urea Nitrogen 15 mg/dL (7-17); Calcium 9.6 mg/dL (8.4-10.2); Carbon Dioxide 32 mmol/L (22-32); Chloride 105 mmol/L (98-107); Cholesterol 196 mg/dL (140-199); Estimated Glomerular Filt Rate > 60.0 mL/min (>60); Globulin 2.8 g/dL (1.7-4.1); Glucose 82 mg/dL (80-110); HDL Cholesterol 60 mg/dL (40-60); HEMOLYSIS < 15 (0-50); LDL Cholesterol Calculated 96 mg/dL (<100); Potassium 4.2 mmol/L (3.4-5.1); Sodium 140 mmol/L (137-145); Triglycerides 199 mg/dL (35-150)
== END ==
PROVIDERS: PCP Physician Assistant; Visit Provider Physician Assistant
DX: E78.2 Mixed hyperlipidemia (principal)
CPT/HCPCS: 80053; 80061; 85025

== ENCOUNTER → 2020-09-11 08:25 | Outpatient (CLI) | payer OTHER, SELFPAY ==
--- NOTE | 2020-09-11 | DI.MG.S_ITS ---
BILATERAL DIGITAL SCREENING MAMMOGRAM 3D/2D WITH CAD: 09/11/2020 CLINICAL: Routine screening. Comparison is made to exams dated: 05/31/2019 mammogram, 04/18/2018 mammogram, and 03/31/2017 mammogram - [facility]. The tissue of both breasts is heterogeneously dense. This may lower the sensitivity of mammography. Current study was also evaluated with a Computer Aided Detection (CAD) system. There are benign post operative findings in the left breast. There is a mole marker on both breasts. No significant masses, calcifications, or other findings are seen in either breast. There has been no significant interval change. IMPRESSION: BENIGN There is no mammographic evidence of malignancy. A 1 year screening mammogram is recommended. This exam was interpreted at Station ID: [id number]. NOTE: For mammograms, a report in lay terms will be sent to the patient. Approximately 15% of breast malignancies will not be visualized mammographically. In the management of a palpable breast mass, a negative mammogram must not discourage biopsy of a clinically suspicious lesion. Electronically Signed By: Cosme Calvert acr/penrad:09/11/2020 10:30:23 letter sent: Normal Exam ACR BI-RADS Category 2: Benign Finding(s) 3342F
== END ==
PROVIDERS: PCP Physician Assistant; Referring Provider Physician Assistant; Visit Provider Physician Assistant
DX: Z12.31 Encounter for screening mammogram for malignant neoplasm of breast (principal)
CPT/HCPCS: 77063; 77067

== ENCOUNTER → 2021-03-19 09:42 | Outpatient (CLI) | payer OTHER, SELFPAY | PROVIDERS: PCP Physician Assistant; Referring Provider Physician Assistant; Visit Provider Physician Assistant | DX: Z78.0 Asymptomatic menopausal state (principal); Z13.820 Encounter for screening for osteoporosis; M85.88 Other specified disorders of bone density and structure, other site | CPT/HCPCS: 77080 ==

== ENCOUNTER 2021-04-30 12:00 | Outpatient (RCR) | payer OTHER, SELFPAY ==
--- NOTE | 2021-02-07 16:32 | PT.OIE ---
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 Mild acid reflux Obstructive sleep apnea of adult PVC (premature ventricular contraction) Seasonal allergies Uterine fibroid Past Surgical History (Last Reviewed 12/11/19 @ 13:11 by Terrance Lamb MD) H/O hysterectomy for benign disease History of colonoscopy History of right breast biopsy Visit Care Team Role Provider Type Arleth Cooper PA-C Attending Provider Non-Staff Primary Care Provider Referring Provider Specialty: Internal Medicine Address: [address] [place] [address], [facility] Email: [email or web address] Physical Therapy Initial Evaluation PT-OP-A Visit Information Start: 02/07/21 16:21 Freq: Status: Active Protocol: Document 02/07/21 09:45 DCW (Rec: 02/07/21 16:32 DCW [id number]) Out-Patient Physical Therapy Visit Information Visit Information Visit Type Initial Evaluation Visit Start Time 09:45 Visit Stop Time 10:30 Total Visit Minutes 45 Visit Number 1 Number of CORDWOOD CUTTER Visits 0 Evaluation Information Evaluation Date 02/07/21 PT-OP-B Current Condition Start: 02/07/21 16:21 Freq: Status: Active Protocol: Document 02/07/21 09:45 DCW (Rec: 02/07/21 16:32 DCW [id number]) Current Condition History of Current Condition Onset Date 12/27/20 Current Complaints Position-dependent vertigo History of Current Condition Pt is a 65 year old female complaining of a 1.5 month history of motion-induced vertigo. Pt reports episodes last ten seconds. Symptoms are provoked by laying down, turning over in bed, and quick head movements. Pt denies recent hearing changes, tinnitus, diplopia, dysarthria , discoordination, or decreased mentation/ consciousness. Pt reports symptoms are waxing/waning in nature. Pt was previously treated for BPPV in 2019 with a reported Kevin maneuver. Admits that when her symptoms initially began, she tried to do an Kevin on herself while watching a YouTube video, thinks it may have helped for a bit, but symptoms returned. Pt denies hx of HTN, diabetes, arrhythmia, head trauma, seizure, migraines, CVA, anxiety/panic disorders, depression, or excessive smoking or drinking. Does note restriction to cervical rotation. Treatment Goals Patient/Caregiver Goals Pt wants to learn how to manage her vertigo. PT-OP-C Subjective Start: 02/07/21 16:21 Freq: Status: Active Protocol: Document 02/07/21 09:45 DCW (Rec: 02/07/21 16:32 DCW [id number]) OP-PT Subjective Patient Comments Patient Comments I'd really like to find out if there are ways to prevent this. Patient Reported Progress Improving Patient Questionnaires Dizziness Handicap Inventory DHI Score 60% DHI Functional Impairment 60 to 79% Impaired (Score 60- 79) PT-OP-O Vestibular Start: 02/07/21 16:21 Freq: Status: Active Protocol: Document 02/07/21 09:45 DCW (Rec: 02/07/21 16:32 DCW [id number]) Vestibular Assessment Auditory Tests Swan Test Lateralizes left Rinne Test Negative Air Conduction Results Equal Visual Testing Smooth Pursuits Horizontal WNL Smooth Pursuits Vertical WNL Saccades Horizontal WNL Saccades Vertical WNL Gaze Evoked Nystagmus With Fixation Negative Gaze Evoked Nystagmus Without Fixation Negative Heave Test Positive Bilateral Thrust Head Positive Bilateral Head Shake Negative Spontaneous Nystagmus Negative Positional Testing Link-Hallpike Positive Right,Negative Left, Upbeating,< 60 Seconds PT-OP-Q Treatments Start: 02/07/21 16:21 Freq: Status: Active Protocol: Document 02/07/21 09:45 DCW (Rec: 02/07/21 16:32 DCW [id number]) Canalithic Repositioning BPPV Treatment Kevin Affected Canal(s) R Posterior Reps x2 Comments Modified Kevin PT-OP-T Assessment and Plan Start: 02/07/21 16:21 Freq: Status: Active Protocol: Document 02/07/21 09:45 DCW (Rec: 02/07/21 16:32 DCW [id number]) Physical Therapy Assessment Rehab Potential Rehabilitation Potential Excellent Evaluation Complexity Number of Personal Factors/Comorbidities 1-2 Number of Body Systems Impaired 1-2 Clinical Presentation at Evaluation Unstable Impairments Impairments Balance,Vestibular Goals Two Impairment Positive R [place]-Hallpike test Ic Designer Custom Goal (LTG) Pt to present with all positional testing negative bilaterally LTG Duration 03/10/21 One Impairment Pt c/o vertigo with rolling over in bed Short Term Goal (STG) Pt to perform all bed mobility for one week with no instances of vertigo STG Duration 03/10/21 Assessment Summary Assessment During right [place]-Hallpike test , pt complained of vertigo and demonstrated up-beating, torsional nystagmus lasting approximately 10 seconds, consistent with diagnosis of right-sided posterior canal BPPV, canalithiasis-type. Pt was treated with a right-sided modified Kevin maneuver. Pt complained of symptoms in the first and third position, which is normally indicative of a successful treatment. Further positional testing was negative. Pt was educated on BPPV, expectations for treatment, possible recurrence (BPPV has a ~50% recurrence rate in the five years following treatment), and post -Kevin restrictions. Pt to return in ~1 week for a follow -up appointment, and intermittently afterward as indicated for treatment of BPPV. Physical Therapy Plan Frequency and Duration Frequency of Treatment As indicated Duration of Treatment One month Plan of Care Start Date 02/07/21 Plan of Care End Date 03/10/21 Therapeutic Interventions Therapeutic Interventions Balance Training,Canalithic Repositioning,Manual Therapy, Patient/Caregiver Education, Self-Care/Home Management, Vestibular Rehabilitation Next Visit Focus/Plan Next Note Type Treatment Note Next Visit Plan Positional testing, CRM as indicated
--- NOTE | 2021-02-07 16:33 | PT.OPPOC ---
Physical, Occupational & Speech Therapy At [facility] Current Diagnoses Benign paroxysmal vertigo, right ear (02/07/21) Dizziness and giddiness (02/07/21) Visit Care Team Role Provider Type Arleth Cooper PA-C Attending Provider Non-Staff Primary Care Provider Referring Provider Specialty: Internal Medicine Address: [address] [place] [address], [facility] Email: [email or web address] Plan Of Care PT-OP-T Assessment and Plan Start: 02/07/21 16:21 Freq: Status: Active Protocol: Document 02/07/21 09:45 DCW (Rec: 02/07/21 16:32 DCW [id number]) Physical Therapy Assessment Rehab Potential Rehabilitation Potential Excellent Evaluation Complexity Number of Personal Factors/Comorbidities 1-2 Number of Body Systems Impaired 1-2 Clinical Presentation at Evaluation Unstable Impairments Impairments Balance,Vestibular Goals Two Impairment Positive R [place]-Hallpike test [facility] Goal (LTG) Pt to present with all positional testing negative bilaterally LTG Duration 03/10/21 One Impairment Pt c/o vertigo with rolling over in bed Short Term Goal (STG) Pt to perform all bed mobility for one week with no instances of vertigo STG Duration 03/10/21 Assessment Summary Assessment During right [place]-Hallpike test , pt complained of vertigo and demonstrated up-beating, torsional nystagmus lasting approximately 10 seconds, consistent with diagnosis of right-sided posterior canal BPPV, canalithiasis-type. Pt was treated with a right-sided modified Kevin maneuver. Pt complained of symptoms in the first and third position, which is normally indicative of a successful treatment. Further positional testing was negative. Pt was educated on BPPV, expectations for treatment, possible recurrence (BPPV has a ~50% recurrence rate in the five years following treatment), and post -Kevin restrictions. Pt to return in ~1 week for a follow -up appointment, and intermittently afterward as indicated for treatment of BPPV. Physical Therapy Plan Frequency and Duration Frequency of Treatment As indicated Duration of Treatment One month Plan of Care Start Date 02/07/21 Plan of Care End Date 03/10/21 Therapeutic Interventions Therapeutic Interventions Balance Training,Canalithic Repositioning,Manual Therapy, Patient/Caregiver Education, Self-Care/Home Management, Vestibular Rehabilitation Next Visit Focus/Plan Next Note Type Treatment Note Next Visit Plan Positional testing, CRM as indicated Plan of Care Dates Plan of Care Start Date 02/07/21 Plan of Care End Date 03/10/21 Electronically Signed by: Barrington Baeza, PT 02/07/21 0996 Please Sign and Return: I have reviewed this Plan of Care and certify that the skilled therapy services above are required to meet the patient?s needs. Physician Signature Date Printed Name and Credentials Clinical Instructor Signature Printed Name and Credentials
--- NOTE | 2021-02-28 12:29 | PT.OTN ---
Current Diagnoses Dizziness and giddiness (02/28/21) Physical Therapy Treatment Note PT-OP-A Visit Information Start: 02/07/21 16:21 Freq: Status: Active Protocol: Document 02/28/21 12:00 DCW (Rec: 02/28/21 12:29 DCW [id number]) Out-Patient Physical Therapy Visit Information Visit Information Visit Type Treatment Note Visit Start Time 12:00 Visit Stop Time 12:25 Total Visit Minutes 25 Visit Number 2 Number of TILE SORTER Visits 0 Evaluation Information Evaluation Date 02/07/21 PT-OP-B Current Condition Start: 02/07/21 16:21 Freq: Status: Active Protocol: Document 02/07/21 09:45 DCW (Rec: 02/07/21 16:32 DCW [id number]) Current Condition History of Current Condition Onset Date 12/27/20 Current Complaints Position-dependent vertigo History of Current Condition Pt is a 65 year old female complaining of a 1.5 month history of motion-induced vertigo. Pt reports episodes last ten seconds. Symptoms are provoked by laying down, turning over in bed, and quick head movements. Pt denies recent hearing changes, tinnitus, diplopia, dysarthria , discoordination, or decreased mentation/ consciousness. Pt reports symptoms are waxing/waning in nature. Pt was previously treated for BPPV in 2019 with a reported Kevin maneuver. Admits that when her symptoms initially began, she tried to do an Kevin on herself while watching a [employer] video, thinks it may have helped for a bit, but symptoms returned. Pt denies hx of HTN, diabetes, arrhythmia, head trauma, seizure, migraines, CVA, anxiety/panic disorders, depression, or excessive smoking or drinking. Does note restriction to cervical rotation. Treatment Goals Patient/Caregiver Goals Pt wants to learn how to manage her vertigo. PT-OP-C Subjective Start: 02/07/21 16:21 Freq: Status: Active Protocol: Document 02/28/21 12:00 DCW (Rec: 02/28/21 12:29 DCW [id number]) OP-PT Subjective Patient Comments Patient Comments I'm good. I'm better. I'm still kind of a dizzy broad. PT-OP-O Vestibular Start: 02/07/21 16:21 Freq: Status: Active Protocol: Document 02/28/21 12:00 DCW (Rec: 02/28/21 12:29 DCW [id number]) Vestibular Assessment Positional Testing Link-Hallpike Positive Right,Negative Left, Upbeating,< 60 Seconds PT-OP-Q Treatments Start: 02/07/21 16:21 Freq: Status: Active Protocol: Document 02/28/21 12:00 DCW (Rec: 02/28/21 12:29 DCW [id number]) Canalithic Repositioning BPPV Treatment Kevin Affected Canal(s) R Posterior Reps x2 Comments Modified Kevin PT-OP-T Assessment and Plan Start: 02/07/21 16:21 Freq: Status: Active Protocol: Document 02/28/21 12:00 DCW (Rec: 02/28/21 12:29 DCW [id number]) Physical Therapy Assessment Impairments Impairments Balance,Vestibular Goals Two Impairment Positive R [place]-Hallpike test Garage Attendant Goal (LTG) Pt to present with all positional testing negative bilaterally LTG Duration 03/10/21 One Impairment Pt c/o vertigo with rolling over in bed Short Term Goal (STG) Pt to perform all bed mobility for one week with no instances of vertigo STG Duration 03/10/21 Assessment Summary Assessment Pt presents with very very mild symptoms today torsional upbeating nystagmus lasting 5 seconds with a mild latency. Pt underwent modified R Kevin maneuver x2, felt much better following treatment. Pt to call for follow-up within the next month if symptoms continue. Physical Therapy Plan Frequency and Duration Frequency of Treatment As indicated Duration of Treatment One month Plan of Care Start Date 02/07/21 Plan of Care End Date 03/10/21 Therapeutic Interventions Therapeutic Interventions Balance Training,Canalithic Repositioning,Manual Therapy, Patient/Caregiver Education, Self-Care/Home Management, Vestibular Rehabilitation Next Visit Focus/Plan Next Note Type Treatment Note Next Visit Plan Positional testing, CRM as indicated
--- NOTE | 2021-04-09 15:10 | PT.OTN ---
Current Diagnoses Dizziness and giddiness (04/09/21) Physical Therapy Treatment Note PT-OP-A Visit Information Start: 02/07/21 16:21 Freq: Status: Active Protocol: Document 04/09/21 14:32 DCW (Rec: 04/09/21 15:10 DCW [id number]) Out-Patient Physical Therapy Visit Information Visit Information Visit Type Treatment Note Visit Start Time 14:32 Visit Stop Time 15:00 Total Visit Minutes 28 Visit Number 3 Number of STUD SETTER Visits 0 Evaluation Information Evaluation Date 02/07/21 PT-OP-B Current Condition Start: 02/07/21 16:21 Freq: Status: Active Protocol: Document 02/07/21 09:45 DCW (Rec: 02/07/21 16:32 DCW [id number]) Current Condition History of Current Condition Onset Date 12/27/20 Current Complaints Position-dependent vertigo History of Current Condition Pt is a 65 year old female complaining of a 1.5 month history of motion-induced vertigo. Pt reports episodes last ten seconds. Symptoms are provoked by laying down, turning over in bed, and quick head movements. Pt denies recent hearing changes, tinnitus, diplopia, dysarthria , discoordination, or decreased mentation/ consciousness. Pt reports symptoms are waxing/waning in nature. Pt was previously treated for BPPV in 2019 with a reported Kevin maneuver. Admits that when her symptoms initially began, she tried to do an Kevin on herself while watching a [place] video, thinks it may have helped for a bit, but symptoms returned. Pt denies hx of HTN, diabetes, arrhythmia, head trauma, seizure, migraines, CVA, anxiety/panic disorders, depression, or excessive smoking or drinking. Does note restriction to cervical rotation. Treatment Goals Patient/Caregiver Goals Pt wants to learn how to manage her vertigo. PT-OP-C Subjective Start: 02/07/21 16:21 Freq: Status: Active Protocol: Document 04/09/21 14:32 DCW (Rec: 04/09/21 15:10 DCW [id number]) OP-PT Subjective Patient Comments Patient Comments It's about the same. I felt it for the whole day after our last appointment, but I was still about the same, so I figured I'd come back. PT-OP-O Vestibular Start: 02/07/21 16:21 Freq: Status: Active Protocol: Document 04/09/21 14:32 DCW (Rec: 04/09/21 15:10 DCW [id number]) Vestibular Assessment Positional Testing [place]-Hallpike Positive Right,Negative Left, Upbeating,< 60 Seconds PT-OP-Q Treatments Start: 02/07/21 16:21 Freq: Status: Active Protocol: Document 04/09/21 14:32 DCW (Rec: 04/09/21 15:10 DCW [id number]) Canalithic Repositioning BPPV Treatment Kevin Affected Canal(s) R Posterior Reps x2 Comments Modified Kevin PT-OP-T Assessment and Plan Start: 02/07/21 16:21 Freq: Status: Active Protocol: Document 04/09/21 14:32 DCW (Rec: 04/09/21 15:10 DCW [id number]) Physical Therapy Assessment Impairments Impairments Balance,Vestibular Goals Two Impairment Positive R [place]-Hallpike test Safety Intern Goal (LTG) Pt to present with all positional testing negative bilaterally LTG Duration 03/10/21 One Impairment Pt c/o vertigo with rolling over in bed Short Term Goal (STG) Pt to perform all bed mobility for one week with no instances of vertigo STG Duration 03/10/21 Assessment Summary Assessment Pt showing improved, yet still present, nystagmus with right [place]-Hallpike. Right-sided Kevin was performed, with symptoms in the first and third positions. Repeat testing showed continued nystagmus, and a second Kevin was performed. Pt agreeable for scheduling a return follow -up visit for further positional testing and CRM as indicated. Physical Therapy Plan Frequency and Duration Frequency of Treatment As indicated Duration of Treatment One month Plan of Care Start Date 04/09/21 Plan of Care End Date 05/10/21 Therapeutic Interventions Therapeutic Interventions Balance Training,Canalithic Repositioning,Manual Therapy, Patient/Caregiver Education, Self-Care/Home Management, Vestibular Rehabilitation Next Visit Focus/Plan Next Note Type Treatment Note Next Visit Plan Positional testing, CRM as indicated
--- NOTE | 2021-04-09 15:11 | PT.OPPOC ---
Physical, Occupational & Speech Therapy At [facility] Current Diagnoses Dizziness and giddiness (04/09/21) Visit Care Team Role Provider Type Arleth Cooper PA-C Attending Provider Non-Staff Primary Care Provider Referring Provider Specialty: Internal Medicine Address: [address] [place] [address], [id number] Email: [email or web address] Plan Of Care PT-OP-T Assessment and Plan Start: 02/07/21 16:21 Freq: Status: Active Protocol: Document 04/09/21 14:32 DCW (Rec: 04/09/21 15:10 DCW [id number]) Physical Therapy Assessment Impairments Impairments Balance,Vestibular Goals Two Impairment Positive R [place]-Hallpike test Mortgage Field Inspector Goal (LTG) Pt to present with all positional testing negative bilaterally LTG Duration 03/10/21 One Impairment Pt c/o vertigo with rolling over in bed Short Term Goal (STG) Pt to perform all bed mobility for one week with no instances of vertigo STG Duration 03/10/21 Assessment Summary Assessment Pt showing improved, yet still present, nystagmus with right [place]-Hallpike. Right-sided Kevin was performed, with symptoms in the first and third positions. Repeat testing showed continued nystagmus, and a second Kevin was performed. Pt agreeable for scheduling a return follow -up visit for further positional testing and CRM as indicated. Physical Therapy Plan Frequency and Duration Frequency of Treatment As indicated Duration of Treatment One month Plan of Care Start Date 04/09/21 Plan of Care End Date 05/10/21 Therapeutic Interventions Therapeutic Interventions Balance Training,Canalithic Repositioning,Manual Therapy, Patient/Caregiver Education, Self-Care/Home Management, Vestibular Rehabilitation Next Visit Focus/Plan Next Note Type Treatment Note Next Visit Plan Positional testing, CRM as indicated Plan of Care Dates Plan of Care Start Date 04/09/21 Plan of Care End Date 05/10/21 Electronically Signed by: Barrington Baeza, PT 04/09/21 [id number] Please Sign and Return: I have reviewed this Plan of Care and certify that the skilled therapy services above are required to meet the patient?s needs. Physician Signature Date Printed Name and Credentials Clinical Instructor Signature Printed Name and Credentials
--- NOTE | 2021-04-30 12:37 | PT.OTN ---
Current Diagnoses Dizziness and giddiness (04/30/21) Physical Therapy Treatment Note PT-OP-A Visit Information Start: 02/07/21 16:21 Freq: Status: Active Protocol: Document 04/30/21 12:09 DCW (Rec: 04/30/21 12:36 DCW [id number]) Out-Patient Physical Therapy Visit Information Visit Information Visit Type Treatment Note Visit Start Time 12:09 Visit Stop Time 12:32 Total Visit Minutes 23 Visit Number 4 Number of BOATBUILDER SUPERVISOR Visits 0 Evaluation Information Evaluation Date 02/07/21 PT-OP-B Current Condition Start: 02/07/21 16:21 Freq: Status: Active Protocol: Document 02/07/21 09:45 DCW (Rec: 02/07/21 16:32 DCW [id number]) Current Condition History of Current Condition Onset Date 12/27/20 Current Complaints Position-dependent vertigo History of Current Condition Pt is a 65 year old female complaining of a 1.5 month history of motion-induced vertigo. Pt reports episodes last ten seconds. Symptoms are provoked by laying down, turning over in bed, and quick head movements. Pt denies recent hearing changes, tinnitus, diplopia, dysarthria , discoordination, or decreased mentation/ consciousness. Pt reports symptoms are waxing/waning in nature. Pt was previously treated for BPPV in 2019 with a reported Kevin maneuver. Admits that when her symptoms initially began, she tried to do an Kevin on herself while watching a [employer] video, thinks it may have helped for a bit, but symptoms returned. Pt denies hx of HTN, diabetes, arrhythmia, head trauma, seizure, migraines, CVA, anxiety/panic disorders, depression, or excessive smoking or drinking. Does note restriction to cervical rotation. Treatment Goals Patient/Caregiver Goals Pt wants to learn how to manage her vertigo. PT-OP-C Subjective Start: 02/07/21 16:21 Freq: Status: Active Protocol: Document 04/30/21 12:09 DCW (Rec: 04/30/21 12:36 DCW [id number]) OP-PT Subjective Patient Comments Patient Comments It's still there. It's less frequent, but I still feel it if I move my head too quickly or something. PT-OP-O Vestibular Start: 10/15/21 16:21 Freq: Status: Active Protocol: Document 04/30/21 12:09 DCW (Rec: 04/30/21 12:37 DCW [id number]) Vestibular Assessment Positional Testing [place]-Hallpike Positive Right,Negative Left, Upbeating,< 60 Seconds PT-OP-Q Treatments Start: 02/07/21 16:21 Freq: Status: Active Protocol: Document 04/30/21 12:09 DCW (Rec: 04/30/21 12:36 DCW [id number]) Manual Therapy Treatment Other Other Manual Treatments Positional Testing Canalithic Repositioning BPPV Treatment Kevin Affected Canal(s) R Posterior Reps x2 Comments Modified Kevin PT-OP-T Assessment and Plan Start: 02/07/21 16:21 Freq: Status: Active Protocol: Document 04/30/21 12:09 DCW (Rec: 04/30/21 12:36 DCW [id number]) Physical Therapy Assessment Impairments Impairments Balance,Vestibular Goals Two Impairment Positive R [place]-Hallpike test Retirement Goal (LTG) Pt to present with all positional testing negative bilaterally LTG Duration 05/31/21 One Impairment Pt c/o vertigo with rolling over in bed Short Term Goal (STG) Pt to perform all bed mobility for one week with no instances of vertigo STG Duration 05/31/21 Assessment Summary Assessment Pt presented with very minimal up-beating nystagmus today with right-sided [place]-hallpike, right-sided Kevin performed. Further testing had a few beats of incredibly mild nystagmus. Reviewed self-Kevin for home use. Physical Therapy Plan Frequency and Duration Frequency of Treatment As indicated Duration of Treatment One month Plan of Care Start Date 04/09/21 Plan of Care End Date 05/10/21 Therapeutic Interventions Therapeutic Interventions Balance Training,Canalithic Repositioning,Manual Therapy, Patient/Caregiver Education, Self-Care/Home Management, Vestibular Rehabilitation Next Visit Focus/Plan Next Note Type Treatment Note Next Visit Plan Positional testing, CRM as indicated
--- NOTE | 2021-06-26 10:17 | PT.OPDS ---
Current Diagnoses Dizziness and giddiness (04/30/21) Visit Care Team Role Provider Type Arleth Cooper PA-C Attending Provider Non-Staff Primary Care Provider Referring Provider Specialty: Internal Medicine Address: [address] [place] [address], [facility] Email: [email or web address] Visit Number Visit Number 4 Discharge Summary PT-OP-B Current Condition Start: 02/07/21 16:21 Freq: Status: Active Protocol: Document 02/07/21 09:45 DCW (Rec: 02/07/21 16:32 DCW [id number]) Current Condition History of Current Condition Onset Date 12/27/20 Current Complaints Position-dependent vertigo History of Current Condition Pt is a 65 year old female complaining of a 1.5 month history of motion-induced vertigo. Pt reports episodes last ten seconds. Symptoms are provoked by laying down, turning over in bed, and quick head movements. Pt denies recent hearing changes, tinnitus, diplopia, dysarthria , discoordination, or decreased mentation/ consciousness. Pt reports symptoms are waxing/waning in nature. Pt was previously treated for BPPV in 2019 with a reported Kevin maneuver. Admits that when her symptoms initially began, she tried to do an Kevin on herself while watching a [employer] video, thinks it may have helped for a bit, but symptoms returned. Pt denies hx of HTN, diabetes, arrhythmia, head trauma, seizure, migraines, CVA, anxiety/panic disorders, depression, or excessive smoking or drinking. Does note restriction to cervical rotation. Treatment Goals Patient/Caregiver Goals Pt wants to learn how to manage her vertigo. PT-OP-C Subjective Start: 02/07/21 16:21 Freq: Status: Active Protocol: Document 04/30/21 12:09 DCW (Rec: 04/30/21 12:36 DCW [id number]) OP-PT Subjective Patient Comments Patient Comments It's still there. It's less frequent, but I still feel it if I move my head too quickly or something. PT-OP-O Vestibular Start: 02/07/21 16:21 Freq: Status: Active Protocol: Document 01/05/22 12:09 DCW (Rec: 04/30/21 12:37 DC [id number]) Vestibular Assessment Positional Testing Link-Hallpike Positive Right,Negative Left, Upbeating,< 60 Seconds PT-OP-T Assessment and Plan Start: 02/07/21 16:21 Freq: Status: Active Protocol: Document 06/26/21 10:15 DCW (Rec: 06/26/21 10:17 DC [id number]) Physical Therapy Assessment Assessment Summary Assessment Pt was returning to PT as needed for treatment of BPPV, however has now not been seen in two months. Pt will be discharged from skilled PT at this time, will require a new referral in order to return. Physical Therapy Plan Discharge Physical Therapy Discharge Reasons No Longer Attending PT Next Visit Focus/Plan Next Note Type Discharge Summary
== END 2021-06-30 13:50 ==
LOC: PHYS 12:00
PROVIDERS: PCP Physician Assistant; Referring Provider Physician Assistant; Visit Provider Physician Assistant
DX: R42 Dizziness and giddiness (principal)
CPT/HCPCS: 95992; 97140; 97161

== ENCOUNTER → 2021-08-08 08:29 | Outpatient (CLI) | payer OTHER, SELFPAY ==
--- NOTE | 2021-08-08 | DI.CT.S_ITS ---
PROCEDURE: CT ABDOMEN PELVIS W CON INDICATIONS: ABDOMINAL CRAMPING TECHNIQUE: After the administration of oral and intravenous contrast, axial sections were acquired from the lung bases to the pubic symphysis. Coronal and sagittal reformats were performed. For radiation dose reduction, the following was used: automated exposure control, adjustment of mA and/or kV according to patient size. COMPARISON:[facility], CT, CT ABDOMEN PELVIS W CON, 03/23/2019, 16:35. FINDINGS: Image quality: Excellent. Lung bases: Unremarkable. Heart: No significant findings. ABDOMEN: Liver: Unremarkable. Gallbladder: Unremarkable. Biliary ducts: Unremarkable. Pancreas: Unremarkable. Spleen: Unremarkable. Adrenal Glands: Unremarkable. Kidneys and Ureters: Unremarkable. Stomach and Bowel: Stomach, small bowel loops, and colon are unremarkable. Large fecal load. Peritoneum: No abnormal intraperitoneal fluid. No free air. Ventral Wall: No hernia. Abdominal Nodes: No retroperitoneal or mesenteric adenopathy by size criteria. Vessels: Aorta and inferior vena cava are normal in size. PELVIS: Pelvic Organs: Unchanged large exophytic uterine fibroid of maximum dimension measuring 7.4 cm. Bladder: Unremarkable. Pelvic Nodes: No enlarged lymph nodes. Miscellaneous: No inguinal hernias are seen. Bones: No lytic or blastic bony lesions. No compression fractures. IMPRESSION: 1. Large fecal load, bowel otherwise unremarkable. 2. Unchanged large exophytic uterine fibroid. 3. No evidence of acute abdominal process. Dictated by: Arsalan Ireland M.D. on 08/08/2021 at 10:27 Approved by: Arsalan Ireland M.D. on 08/08/2021 at 10:32
== END ==
PROVIDERS: PCP Physician Assistant; Referring Provider Physician Assistant; Visit Provider Physician Assistant
DX: D25.9 Leiomyoma of uterus, unspecified (principal); R10.9 Unspecified abdominal pain
CPT/HCPCS: 74177; Q9967

== ENCOUNTER → 2021-12-03 09:16 | Outpatient (CLI) | payer OTHER, SELFPAY ==
--- NOTE | 2021-12-03 | DI.MG.S_ITS ---
BILATERAL DIGITAL SCREENING MAMMOGRAM 3D/2D WITH CAD: 12/03/2021 CLINICAL: Routine screening. Comparison is made to exams dated: 09/11/2020 mammogram, 05/31/2019 mammogram, and 04/18/2018 mammogram - [facility]. The tissue of both breasts is heterogeneously dense. This may lower the sensitivity of mammography. Current study was also evaluated with a Computer Aided Detection (CAD) system. There are benign post operative findings in the left breast. There is a mole marker on both breasts. No significant masses, calcifications, or other findings are seen in either breast. There has been no significant interval change. IMPRESSION: BENIGN There is no mammographic evidence of malignancy. A 1 year screening mammogram is recommended. Based on the Tyrer Cuzick model (a risk assessment model) the patient's lifetime risk is 10.7% and her 10 year risk is 5.7%. According to the ACR, ACS, and NCCN guidelines, an annual breast MRI exam along with mammogram is recommended if the patient's lifetime risk is 20% or greater. This exam was interpreted at Station ID: [id number]. NOTE: For mammograms, a report in lay terms will be sent to the patient. Approximately 15% of breast malignancies will not be visualized mammographically. In the management of a palpable breast mass, a negative mammogram must not discourage biopsy of a clinically suspicious lesion. Electronically Signed By: Mckinley Law M.D., jr/nancie:12/03/2021 15:10:21 letter sent: Normal Exam ACR BI-RADS Category 2: Benign Finding(s) 3342F
== END ==
PROVIDERS: Family Provider Physician Assistant; PCP Physician Assistant; Referring Provider Physician Assistant; Visit Provider Physician Assistant
DX: Z12.31 Encounter for screening mammogram for malignant neoplasm of breast (principal)
CPT/HCPCS: 77063; 77067

== ENCOUNTER 2021-12-16 16:29 | Outpatient (RCR) | payer OTHER, SELFPAY ==
--- NOTE | 2021-12-16 17:35 | PT.OIE ---
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 Mild acid reflux Obstructive sleep apnea of adult PVC (premature ventricular contraction) Seasonal allergies Uterine fibroid Past Surgical History (Last Reviewed 08/14/21 @ 10:18 by Terrance Lamb MD) H/O hysterectomy for benign disease History of colonoscopy History of right breast biopsy Visit Care Team Role Provider Type Arleth Cooper PA-C Attending Provider Non-Staff Family Provider Primary Care Provider Referring Provider Specialty: Internal Medicine Address: [address] [place] [address], [facility] Email: [email or web address] Physical Therapy Initial Evaluation PT-OP-A Visit Information Start: 12/16/21 17:17 Freq: Status: Active Protocol: Document 12/16/21 16:45 DCW (Rec: 12/16/21 17:35 DCW [id number]) Out-Patient Physical Therapy Visit Information Visit Information Visit Type Initial Evaluation Visit Start Time 16:45 Visit Stop Time 17:15 Total Visit Minutes 30 Visit Number 1 Number of CARE PROFESSIONAL Visits 0 Evaluation Information Evaluation Date 12/16/21 PT-OP-B Current Condition Start: 12/16/21 17:17 Freq: Status: Active Protocol: Document 12/16/21 16:45 DCW (Rec: 12/16/21 17:35 DCW [id number]) Current Condition History of Current Condition Onset Date 11/11/21 Current Complaints One day of vertigo/imbalance History of Current Condition Pt is a 66 year old female reporting a single symptomatic day of spontaneous vertigo/ imbalance that occurred on . Pt did have a history of previously treated BPPV, and was concerned that this may be a recurrence, so she contacted her PCP for a referral for vestibular therapy. Pt was unable to get seen until today (12/16/21), and notes that she has not had any symptoms since. Reports the day of incident, she woke up feeling wobbly and off balance, had to stay in bed, but by noon she felt quite a bit better, and by 2:00 pm she was essentially back to normal. Admits she was considering canceling her appointment today, but eventually decided to come get checked out anyway. Pt reports otherwise no major medical changes since she was treated in this clinic in March 2021/April 2021 for BPPV. PT-OP-C Subjective Start: 12/16/21 17:17 Freq: Status: Active Protocol: Document 12/16/21 16:45 DCW (Rec: 12/16/21 17:35 DCW [id number]) OP-PT Subjective Patient Comments Patient Comments I'm better now, it's been fine ever since. Patient Reported Progress Improving PT-OP-O Vestibular Start: 12/16/21 17:17 Freq: Status: Active Protocol: Document 12/16/21 16:45 DCW (Rec: 12/16/21 17:35 DCW [id number]) Vestibular Assessment Auditory Tests Swan Test Within normal limits Rinne Test Negative Air Conduction Results Equal Visual Testing Smooth Pursuits Horizontal WNL Smooth Pursuits Vertical WNL Saccades Horizontal WNL Saccades Vertical WNL Gaze Evoked Nystagmus With Fixation Negative Heave Test Negative Thrust Head Negative Deandre String Test WNL Positional Testing Varney-Hallpike Negative Left,Negative Right Rolling Test Negative Left,Negative Right Comments Vestibular Comments Equipment malfunction resulted in inability to perform testing with fixation removed PT-OP-T Assessment and Plan Start: 12/16/21 17:17 Freq: Status: Active Protocol: Document 12/16/21 16:45 DCW (Rec: 12/16/21 17:35 DCW [id number]) Physical Therapy Assessment Rehab Potential Rehabilitation Potential Excellent Evaluation Complexity Number of Personal Factors/Comorbidities 0 Number of Body Systems Impaired 1-2 Clinical Presentation at Evaluation Stable Assessment Summary Assessment Pt presents with an entirely negative vestibular evaluation , no lingering signs or symptoms of any vestibular dysfunction. Based on subject report of symptoms from one month ago, pt may have had a very mild episode of vestibular neuritis, however this is impossible to say with any amount of certainty based on examination results today. Pt no longer presenting with any symptoms, unlikely to benefit from any skilled intervention, will be discharged from vestibular therapy at this time. Physical Therapy Plan Frequency and Duration Frequency of Treatment 1x/Week Duration of Treatment One day Plan of Care Start Date 12/16/21 Plan of Care End Date 12/17/21 Discharge Physical Therapy Discharge Comments No indication for further skilled intervention Next Visit Focus/Plan Next Note Type Discharge Summary
--- NOTE | 2021-12-16 17:37 | PT.OPPOC ---
Physical, Occupational & Speech Therapy At [facility] Current Diagnoses Dizziness and giddiness (12/16/21) Visit Care Team Role Provider Type Arleth Cooper PA-C Attending Provider Non-Staff Family Provider Primary Care Provider Referring Provider Specialty: Internal Medicine Address: [address] [place] [address] Email: [email or web address] Plan Of Care PT-OP-T Assessment and Plan Start: 12/16/21 17:17 Freq: Status: Active Protocol: Document 12/16/21 16:45 DCW (Rec: 12/16/21 17:35 DCW [id number]) Physical Therapy Assessment Rehab Potential Rehabilitation Potential Excellent Evaluation Complexity Number of Personal Factors/Comorbidities 0 Number of Body Systems Impaired 1-2 Clinical Presentation at Evaluation Stable Assessment Summary Assessment Pt presents with an entirely negative vestibular evaluation , no lingering signs or symptoms of any vestibular dysfunction. Based on subject report of symptoms from one month ago, pt may have had a very mild episode of vestibular neuritis, however this is impossible to say with any amount of certainty based on examination results today. Pt no longer presenting with any symptoms, unlikely to benefit from any skilled intervention, will be discharged from vestibular therapy at this time. Physical Therapy Plan Frequency and Duration Frequency of Treatment 1x/Week Duration of Treatment One day Plan of Care Start Date 12/16/21 Plan of Care End Date 12/17/21 Discharge Physical Therapy Discharge Comments No indication for further skilled intervention Next Visit Focus/Plan Next Note Type Discharge Summary Plan of Care Dates Plan of Care Start Date 12/16/21 Plan of Care End Date 12/17/21 Electronically Signed by: Barrington Baeza, PT 12/16/21 5069 If you are in agreement with this Plan of Care, please return a signed and dated copy. I have reviewed this Plan of Care and certify that the skilled therapy services above are required to meet the patient?s needs. Physician Signature Date Printed Name and Credentials Clinical Instructor Signature Printed Name and Credentials
--- NOTE | 2021-12-18 16:47 | PT.OPDS ---
Current Diagnoses Dizziness and giddiness (12/16/21) Visit Care Team Role Provider Type Arleth Cooper PA-C Attending Provider Non-Staff Family Provider Primary Care Provider Referring Provider Specialty: Internal Medicine Address: [address] [place] [address], [id number] Email: [email or web address] [facility] Visit Number Visit Number 1 Discharge Summary PT-OP-B Current Condition Start: 12/16/21 17:17 Freq: Status: Active Protocol: Document 12/16/21 16:45 DCW (Rec: 12/16/21 17:35 DCW [id number]) Current Condition History of Current Condition Onset Date 11/11/21 Current Complaints One day of vertigo/imbalance History of Current Condition Pt is a 66 year old female reporting a single symptomatic day of spontaneous vertigo/ imbalance that occurred on . Pt did have a history of previously treated BPPV, and was concerned that this may be a recurrence, so she contacted her PCP for a referral for vestibular therapy. Pt was unable to get seen until today (12/16/21), and notes that she has not had any symptoms since. Reports the day of incident, she woke up feeling wobbly and off balance, had to stay in bed, but by noon she felt quite a bit better, and by 2:00 pm she was essentially back to normal. Admits she was considering canceling her appointment today, but eventually decided to come get checked out anyway. Pt reports otherwise no major medical changes since she was treated in this clinic in March 2021/April 2021 for BPPV. PT-OP-C Subjective Start: 12/16/21 17:17 Freq: Status: Active Protocol: Document 12/16/21 16:45 DCW (Rec: 12/16/21 17:35 DCW [id number]) OP-PT Subjective Patient Comments Patient Comments I'm better now, it's been fine ever since. Patient Reported Progress Improving PT-OP-O Vestibular Start: 12/16/21 17:17 Freq: Status: Active Protocol: Document 12/16/21 16:45 DCW (Rec: 12/16/21 17:35 DCW [id number]) Vestibular Assessment Auditory Tests Swan Test Within normal limits Rinne Test Negative Air Conduction Results Equal Visual Testing Smooth Pursuits Horizontal WNL Smooth Pursuits Vertical WNL Saccades Horizontal WNL Saccades Vertical WNL Gaze Evoked Nystagmus With Fixation Negative Heave Test Negative Thrust Head Negative Deandre String Test WNL Positional Testing Link-Hallpike Negative Left,Negative Right Rolling Test Negative Left,Negative Right Comments Vestibular Comments Equipment malfunction resulted in inability to perform testing with fixation removed PT-OP-T Assessment and Plan Start: 12/16/21 17:17 Freq: Status: Active Protocol: Document 12/16/21 16:45 DCW (Rec: 12/16/21 17:35 DCW [id number]) Physical Therapy Assessment Rehab Potential Rehabilitation Potential Excellent Evaluation Complexity Number of Personal Factors/Comorbidities 0 Number of Body Systems Impaired 1-2 Clinical Presentation at Evaluation Stable Assessment Summary Assessment Pt presents with an entirely negative vestibular evaluation , no lingering signs or symptoms of any vestibular dysfunction. Based on subject report of symptoms from one month ago, pt may have had a very mild episode of vestibular neuritis, however this is impossible to say with any amount of certainty based on examination results today. Pt no longer presenting with any symptoms, unlikely to benefit from any skilled intervention, will be discharged from vestibular therapy at this time. Physical Therapy Plan Frequency and Duration Frequency of Treatment 1x/Week Duration of Treatment One day Plan of Care Start Date 12/16/21 Plan of Care End Date 12/17/21 Discharge Physical Therapy Discharge Comments No indication for further skilled intervention Next Visit Focus/Plan Next Note Type Discharge Summary
== END 2022-02-11 10:13 ==
LOC: PHYS 16:29
PROVIDERS: Family Provider Physician Assistant; PCP Physician Assistant; Referring Provider Physician Assistant; Visit Provider Physician Assistant
DX: R42 Dizziness and giddiness (principal)
CPT/HCPCS: 97161

== ENCOUNTER 2022-03-30 09:45 | Outpatient (RCR) | payer OTHER, SELFPAY ==
--- NOTE | 2022-02-20 15:11 | PT.OIE ---
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 Mild acid reflux Obstructive sleep apnea of adult PVC (premature ventricular contraction) Seasonal allergies Uterine fibroid Past Surgical History (Last Reviewed 08/14/21 @ 10:18 by Terrance Lamb MD) H/O hysterectomy for benign disease History of colonoscopy History of right breast biopsy Visit Care Team Role Provider Type Arleth Cooper PA-C Attending Provider Physician Stonecutter Apprentice Hand Family Provider Primary Care Provider Referring Provider Specialty: Medical Address: [address] [place] [address], [facility] Email: [email or web address] Physical Therapy Initial Evaluation PT-OP-A Visit Information Start: 02/20/22 15:00 Freq: Status: Active Protocol: Document 02/20/22 14:30 DCW (Rec: 02/20/22 15:11 DCW [id number]) Out-Patient Physical Therapy Visit Information Visit Information Visit Type Initial Evaluation Visit Start Time 14:30 Visit Stop Time 15:00 Total Visit Minutes 30 Visit Number 1 Number of PRINT LINE SUPERVISOR Visits 0 Evaluation Information Evaluation Date 02/20/22 PT-OP-B Current Condition Start: 02/20/22 15:00 Freq: Status: Active Protocol: Document 02/20/22 14:30 DCW (Rec: 02/20/22 15:11 DCW [id number]) Current Condition History of Current Condition Onset Date 02/09/22 Current Complaints Positional vertigo History of Current Condition Pt is a 66 year old female with a recurrent history of BPPV complaining of a two week history of motion-induced vertigo. Pt admits she was fairly mildly symptomatic following the initial start on 02/09/22 with positional changes, however this lasted only 3-4 days, and she hasn't really been feeling much any more. Pt has previously undergone treatment for BPPV at this clinic with good success, however this is the third recurrance of her symptoms. Symptoms are provoked by lying down in bed and bending over while gardening. Pt denies recent hearing changes, tinnitus, diplopia, dysarthria, discoordination, or decreased mentation/consciousness. Pt reports no medical changes since her last vestibular evaluation. PT-OP-C Subjective Start: 02/20/22 15:00 Freq: Status: Active Protocol: Document 02/20/22 14:30 DCW (Rec: 02/20/22 15:11 DCW [id number]) OP-PT Subjective Patient Comments Patient Comments Pt curious if there would be such a thing as a standing referral for vestibular therapy so she doesn't need to do so much waiting around when she has an episode, and she could just come in. Patient Reported Progress Improving Patient Questionnaires Dizziness Handicap Inventory DHI Score 48% on day that symptoms began PT-OP-O Vestibular Start: 02/20/22 15:00 Freq: Status: Active Protocol: Document 02/20/22 14:30 DCW (Rec: 02/20/22 15:11 DCW [id number]) Vestibular Assessment Screening Tests Vestibular Artery Screen Negative Sharp-Vilma Test Negative Positional Testing Link-Hallpike Positive Right,Negative Left, Upbeating,< 60 Seconds Comments Vestibular Comments Since pt has long-standing history of prior BPPV recurrence, main focus of today's evaluation was positional testing and CRM. If pt displays signs of other vestibular dysfunction, or does not respond to treatment as expected, further testing should be carried out. PT-OP-Q Treatments Start: 02/20/22 15:00 Freq: Status: Active Protocol: Document 02/20/22 14:30 DCW (Rec: 02/20/22 15:11 DCW [id number]) Canalithic Repositioning BPPV Treatment Kevin Affected Canal(s) R Posterior Reps x2 Comments Modified Kevin PT-OP-T Assessment and Plan Start: 02/20/22 15:00 Freq: Status: Active Protocol: Document 02/20/22 14:30 DCW (Rec: 02/20/22 15:11 DCW [id number]) Physical Therapy Assessment Rehab Potential Rehabilitation Potential Excellent Evaluation Complexity Number of Personal Factors/Comorbidities 0 Number of Body Systems Impaired 1-2 Clinical Presentation at Evaluation Stable Impairments Impairments Balance,Vestibular Goals Two Impairment Positive right Hallpike test Polishing Machine Operator Helper Goal (LTG) Pt to present with entirely negative positional testing bilaterally. LTG Duration 04/03/22 One Impairment Pt experiences vertigo with positional changes Short Term Goal (STG) Pt to demonstrate ability to fully participate in normal gardening activities with no symptoms of vertigo. STG Duration 03/13/22 Assessment Summary Assessment During right Link-Hallpike test , pt complained of vertigo and demonstrated mild up-beating, torsional nystagmus lasting approximately 5 seconds, consistent with diagnosis of right-sided posterior canal BPPV, canalithiasis-type. Pt was treated with a right-sided modified Kevin maneuver. Pt complained of symptoms in the first and third position, which is normally indicative of a successful treatment. Further positional testing was negative. Pt instructed to return for further testing and CRM as indicated. Physical Therapy Plan Frequency and Duration Frequency of Treatment 1-2x/week Duration of treatment (weeks) 6 Plan of Care Start Date 02/20/22 Plan of Care End Date 04/03/22 Therapeutic Interventions Therapeutic Interventions Balance Training,Canalithic Repositioning,Home Exercise Program,Neuromuscular Re- education,Therapeutic Activities,Therapeutic Exercises,Vestibular Rehabilitation Next Visit Focus/Plan Next Note Type Treatment Note Next Visit Plan Positional testing, CRM as indicated
--- NOTE | 2022-02-20 15:12 | PT.OPPOC ---
Physical, Occupational & Speech Therapy At Current Diagnoses Benign paroxysmal vertigo, right ear (02/20/22) Dizziness and giddiness (02/20/22) Visit Care Team Role Provider Type Arleth Cooper PA-C Attending Provider Physician Irrigationist Designer Family Provider Primary Care Provider Referring Provider Specialty: Medical Address: [address] [place] [address], [facility] Email: [email or web address] Unzipped Plan Of Care PT-OP-T Assessment and Plan Start: 02/20/22 15:00 Freq: Status: Active Protocol: Document 02/20/22 14:30 DCW (Rec: 02/20/22 15:11 DCW [id number]) Physical Therapy Assessment Rehab Potential Rehabilitation Potential Excellent Evaluation Complexity Number of Personal Factors/Comorbidities 0 Number of Body Systems Impaired 1-2 Clinical Presentation at Evaluation Stable Impairments Impairments Balance,Vestibular Goals Two Impairment Positive right Hallpike test Timber Feller Goal (LTG) Pt to present with entirely negative positional testing bilaterally. LTG Duration 04/03/22 One Impairment Pt experiences vertigo with positional changes Short Term Goal (STG) Pt to demonstrate ability to fully participate in normal gardening activities with no symptoms of vertigo. STG Duration 03/13/22 Assessment Summary Assessment During right [place]-Hallpike test , pt complained of vertigo and demonstrated mild up-beating, torsional nystagmus lasting approximately 5 seconds, consistent with diagnosis of right-sided posterior canal BPPV, canalithiasis-type. Pt was treated with a right-sided modified Kevin maneuver. Pt complained of symptoms in the first and third position, which is normally indicative of a successful treatment. Further positional testing was negative. Pt instructed to return for further testing and CRM as indicated. Physical Therapy Plan Frequency and Duration Frequency of Treatment 1-2x/week Duration of treatment (weeks) 6 Plan of Care Start Date 02/20/22 Plan of Care End Date 04/03/22 Therapeutic Interventions Therapeutic Interventions Balance Training,Canalithic Repositioning,Home Exercise Program,Neuromuscular Re- education,Therapeutic Activities,Therapeutic Exercises,Vestibular Rehabilitation Next Visit Focus/Plan Next Note Type Treatment Note Next Visit Plan Positional testing, CRM as indicated Plan of Care Dates Plan of Care Start Date 02/20/22 Plan of Care End Date 04/03/22 Electronically Signed by: Barrington Baeza, PT 02/20/22 7614 If you are in agreement with this Plan of Care, please return a signed and dated copy. I have reviewed this Plan of Care and certify that the skilled therapy services above are required to meet the patient?s needs. Physician Signature Date Printed Name and Credentials Clinical Instructor Signature Printed Name and Credentials
--- NOTE | 2022-03-30 10:08 | PT.OTN ---
Current Diagnoses Benign paroxysmal vertigo, right ear (03/30/22) Dizziness and giddiness (03/30/22) Physical Therapy Treatment Note PT-OP-A Visit Information Start: 02/20/22 15:00 Freq: Status: Active Protocol: Document 03/30/22 09:45 DCW (Rec: 03/30/22 10:08 DCW [id number]) Out-Patient Physical Therapy Visit Information Visit Information Visit Type Progress Note Visit Start Time 09:45 Visit Stop Time 10:03 Total Visit Minutes 18 Visit Number 2 Number of [employer] OFFICER Visits 0 Evaluation Information Evaluation Date 02/20/22 PT-OP-B Current Condition Start: 02/20/22 15:00 Freq: Status: Active Protocol: Document 02/20/22 14:30 DCW (Rec: 02/20/22 15:11 DCW [id number]) Current Condition History of Current Condition Onset Date 02/09/22 Current Complaints Positional vertigo History of Current Condition Pt is a 66 year old female with a recurrent history of BPPV complaining of a two week history of motion-induced vertigo. Pt admits she was fairly mildly symptomatic following the initial start on 02/09/22 with positional changes, however this lasted only 3-4 days, and she hasn't really been feeling much any more. Pt has previously undergone treatment for BPPV at this clinic with good success, however this is the third recurrance of her symptoms. Symptoms are provoked by lying down in bed and bending over while gardening. Pt denies recent hearing changes, tinnitus, diplopia, dysarthria, discoordination, or decreased mentation/consciousness. Pt reports no medical changes since her last vestibular evaluation. PT-OP-C Subjective Start: 02/20/22 15:00 Freq: Status: Active Protocol: Document 03/30/22 09:45 DCW (Rec: 03/30/22 10:08 DCW [id number]) OP-PT Subjective Patient Comments Patient Comments I had another bout of dizziness in the morning, better by the afternoon, but it seems more than just this normal vertigo. PT-OP-O Vestibular Start: 02/20/22 15:00 Freq: Status: Active Protocol: Document 03/30/22 09:45 DCW (Rec: 03/30/22 10:08 DCW [id number]) Vestibular Assessment Positional Testing Link-Hallpike Positive Right,Negative Left, Upbeating,< 60 Seconds Comments Vestibular Comments Very mild nystagmus with R Hallpike, lasting ~5 seconds with associated complaints of vertigo. PT-OP-Q Treatments Start: 02/20/22 15:00 Freq: Status: Active Protocol: Document 03/30/22 09:45 DCW (Rec: 03/30/22 10:08 DCW [id number]) Manual Therapy Treatment Other Other Manual Treatments Positional testing Canalithic Repositioning BPPV Treatment Kevin Affected Canal(s) R Posterior Reps x2 Comments Modified Kevin PT-OP-T Assessment and Plan Start: 02/20/22 15:00 Freq: Status: Active Protocol: Document 03/30/22 09:45 DCW (Rec: 03/30/22 10:08 DCW [id number]) Physical Therapy Assessment Impairments Impairments Balance,Vestibular Goals Two Impairment Positive right Hallpike test Comp Field Case Manager Goal (LTG) Pt to present with entirely negative positional testing bilaterally. LTG Duration 05/11/22 One Impairment Pt experiences vertigo with positional changes Short Term Goal (STG) Pt to demonstrate ability to fully participate in normal gardening activities with no symptoms of vertigo. STG Duration 04/30/22 Assessment Summary Assessment Once again, pt complained of vertigo and demonstrated mild up-beating, torsional nystagmus lasting approximately 5 seconds during right [place]-Hallpike test. Pt was treated with a right-sided modified Kevin maneuver. Pt complained of symptoms in the first and third position, which is normally indicative of a successful treatment. Further positional testing was negative. Cervical stiffness did limit extension during treatment, which could limit effectiveness of modified Kevin maneuver. Pt to return for follow-up positional testing and CRM as indicated. Physical Therapy Plan Frequency and Duration Frequency of Treatment 1-2x/week Duration of treatment (weeks) 6 Plan of Care Start Date 03/30/22 Plan of Care End Date 05/11/22 Therapeutic Interventions Therapeutic Interventions Balance Training,Canalithic Repositioning,Home Exercise Program,Neuromuscular Re- education,Therapeutic Activities,Therapeutic Exercises,Vestibular Rehabilitation Next Visit Focus/Plan Next Note Type Treatment Note Next Visit Plan Positional testing, CRM as indicated
--- NOTE | 2022-03-30 10:09 | PT.OPPOC ---
Physical, Occupational & Speech Therapy At [facility] Current Diagnoses Benign paroxysmal vertigo, right ear (03/30/22) Dizziness and giddiness (03/30/22) Visit Care Team Role Provider Type Arleth Cooper PA-C Attending Provider Physician Pit Steward Family Provider Primary Care Provider Referring Provider Specialty: Medical Address: [address] [place] [address], [facility] Email: [email or web address] Plan Of Care PT-OP-T Assessment and Plan Start: 02/20/22 15:00 Freq: Status: Active Protocol: Document 03/30/22 09:45 DCW (Rec: 03/30/22 10:08 DCW [id number]) Physical Therapy Assessment Impairments Impairments Balance,Vestibular Goals Two Impairment Positive right Hallpike test Group Home Goal (LTG) Pt to present with entirely negative positional testing bilaterally. LTG Duration 05/11/22 One Impairment Pt experiences vertigo with positional changes Short Term Goal (STG) Pt to demonstrate ability to fully participate in normal gardening activities with no symptoms of vertigo. STG Duration 04/30/22 Assessment Summary Assessment Once again, pt complained of vertigo and demonstrated mild up-beating, torsional nystagmus lasting approximately 5 seconds during right [place]-Hallpike test. Pt was treated with a right-sided modified Kevin maneuver. Pt complained of symptoms in the first and third position, which is normally indicative of a successful treatment. Further positional testing was negative. Cervical stiffness did limit extension during treatment, which could limit effectiveness of modified Kevin maneuver. Pt to return for follow-up positional testing and CRM as indicated. Physical Therapy Plan Frequency and Duration Frequency of Treatment 1-2x/week Duration of treatment (weeks) 6 Plan of Care Start Date 03/30/22 Plan of Care End Date 05/11/22 Therapeutic Interventions Therapeutic Interventions Balance Training,Canalithic Repositioning,Home Exercise Program,Neuromuscular Re- education,Therapeutic Activities,Therapeutic Exercises,Vestibular Rehabilitation Next Visit Focus/Plan Next Note Type Treatment Note Next Visit Plan Positional testing, CRM as indicated Plan of Care Dates Plan of Care Start Date 03/30/22 Plan of Care End Date 05/11/22 Electronically Signed by: Barrington Baeza, PT 03/30/22 1009 If you are in agreement with this Plan of Care, please return a signed and dated copy. I have reviewed this Plan of Care and certify that the skilled therapy services above are required to meet the patient?s needs. Physician Signature Date Printed Name and Credentials Clinical Instructor Signature Printed Name and Credentials
--- NOTE | 2022-06-11 14:18 | PT.OPDS ---
Current Diagnoses Benign paroxysmal vertigo, right ear (03/30/22) Dizziness and giddiness (03/30/22) Visit Care Team Role Provider Type Arleth Cooper PA-C Attending Provider Physician Research Software Engineer Family Provider Primary Care Provider Referring Provider Specialty: Medical Address: [address] [place] [address], [facility] Email: [email or web address] Visit Number Visit Number 2 Discharge Summary PT-OP-B Current Condition Start: 02/20/22 15:00 Freq: Status: Active Protocol: Document 02/20/22 14:30 DCW (Rec: 02/20/22 15:11 DCW [id number]) Current Condition History of Current Condition Onset Date 02/09/22 Current Complaints Positional vertigo History of Current Condition Pt is a 66 year old female with a recurrent history of BPPV complaining of a two week history of motion-induced vertigo. Pt admits she was fairly mildly symptomatic following the initial start on 02/09/22 with positional changes, however this lasted only 3-4 days, and she hasn't really been feeling much any more. Pt has previously undergone treatment for BPPV at this clinic with good success, however this is the third recurrance of her symptoms. Symptoms are provoked by lying down in bed and bending over while gardening. Pt denies recent hearing changes, tinnitus, diplopia, dysarthria, discoordination, or decreased mentation/consciousness. Pt reports no medical changes since her last vestibular evaluation. PT-OP-C Subjective Start: 02/20/22 15:00 Freq: Status: Active Protocol: Document 03/30/22 09:45 DCW (Rec: 03/30/22 10:08 DCW [id number]) OP-PT Subjective Patient Comments Patient Comments I had another bout of dizziness in the morning, better by the afternoon, but it seems more than just this normal vertigo. PT-OP-O Vestibular Start: 02/20/22 15:00 Freq: Status: Active Protocol: Document 03/30/22 09:45 DCW (Rec: 03/30/22 10:08 DCW [id number]) Vestibular Assessment Positional Testing Link-Hallpike Positive Right,Negative Left, Upbeating,< 60 Seconds Comments Vestibular Comments Very mild nystagmus with R Hallpike, lasting ~5 seconds with associated complaints of vertigo. PT-OP-T Assessment and Plan Start: 02/20/22 15:00 Freq: Status: Active Protocol: Document 06/11/22 14:16 DCW (Rec: 06/11/22 14:18 DCW [id number]) Physical Therapy Assessment Progress Towards Goals Progress Towards Goals Goals Met Assessment Summary Assessment Spoke with pt via telephone, continues to do well, does not feel she requires any further vestibular rehab. Remaining appointments will be canceled, pt will be discharged from skilled therapy at this time. Physical Therapy Plan Discharge Physical Therapy Discharge Reasons Goals Met
== END 2022-06-12 11:18 | disposition home or self-care (01) ==
LOC: PHYS 09:45
PROVIDERS: Family Provider Physician Assistant; PCP Physician Assistant; Referring Provider Physician Assistant; Visit Provider Physician Assistant
DX: H81.11 Benign paroxysmal vertigo, right ear (principal)
CPT/HCPCS: 95992; 97161

== ENCOUNTER → 2022-08-12 07:25 | Outpatient (CLI) | payer OTHER, SELFPAY ==
[2022-08-12 08:09] LABS: Hemoglobin 12.8 g/dL (12.0-16.0); Mean Corpuscular HGB Conc 33.6 % (30-36); Mean Corpuscular Volume 95.2 fL (80-100); Platelet Count 241 X10^3/uL (150-400); Red Blood Cell Count 3.99 X10^6/uL (4.0-5.2); Red Cell Distribution Width 12.8 % (11.6-14.8)
[2022-08-12 08:27] LABS: Alanine Aminotransferase 22 IU/L (<35); Albumin 4.2 g/dL (3.5-5.0); Albumin Globulin Ratio 1.5 (1.0-2.8); Alkaline Phosphatase 63 U/L (38-126); Aspartate Aminotransferase 25 IU/L (14-36); BUN Creatinine Ratio 18.3 (6-22); Bilirubin Total 0.5 mg/dL (0.2-1.3); Blood Urea Nitrogen 13 mg/dL (7-17); Calcium 9.4 mg/dL (8.4-10.2); Carbon Dioxide 32 mmol/L (22-32); Chloride 103 mmol/L (98-107); Cholesterol 205 mg/dL (140-199); Estimated Glomerular Filt Rate > 60 mL/min (>60); Globulin 2.8 g/dL (1.7-4.1); Glucose 85 mg/dL (80-110); HDL Cholesterol 73 mg/dL (40-60); HEMOLYSIS < 15 (0-50); LDL Cholesterol Calculated 106 mg/dL (<100); Potassium 3.9 mmol/L (3.4-5.1); Sodium 140 mmol/L (137-145); Triglycerides 128 mg/dL (35-150)
[2022-08-12 08:58] LABS: TSH w/ Reflex to FT4 3.93 uIU/mL (0.47-4.68)
[2022-08-12 09:14] LABS: Vitamin B12 758 pg/mL (239-931)
[2022-08-14 12:36] LABS: Albumin 3.9 g/dL (2.9-4.4); Alpha-1-Globulin 0.2 g/dL (0.0-0.4); Alpha-2-Globulin 0.7 g/dL (0.4-1.0); Globulin Total 2.9 g/dL (2.2-3.9); Protein, Total 6.8 g/dL (6.0-8.5)
== END ==
PROVIDERS: Family Provider Physician Assistant; PCP Internal Medicine; Referring Provider Internal Medicine; Visit Provider Internal Medicine
DX: E53.8 Deficiency of other specified B group vitamins (principal); E78.2 Mixed hyperlipidemia; R11.15 Cyclical vomiting syndrome unrelated to migraine; G62.9 Polyneuropathy, unspecified; R77.9 Abnormality of plasma protein, unspecified
CPT/HCPCS: 36415; 80053; 80061; 82607; 84155; 84165; 84443; 85027

== ENCOUNTER → 2023-02-10 08:14 | Outpatient (CLI) | payer OTHER, SELFPAY ==
--- NOTE | 2023-02-10 | DI.MG.S_ITS ---
BILATERAL DIGITAL SCREENING MAMMOGRAM 3D/2D WITH CAD: 02/10/2023 CLINICAL: Routine screening. Comparison is made to exams dated: 12/03/2021 mammogram, 09/11/2020 mammogram, 05/31/2019 mammogram, and 04/18/2018 mammogram - [facility]. Both breasts are heterogeneously dense, which may obscure small masses (category c / 51-75% glandular tissue). Current study was also evaluated with a Computer Aided Detection (CAD) system. There are benign post operative findings in the left breast. No significant masses, calcifications, or other findings are seen in either breast. There has been no significant interval change. IMPRESSION: BENIGN There is no mammographic evidence of malignancy. A 1 year screening mammogram is recommended. Based on the Tyrer Cuzick model (a risk assessment model) the patient's lifetime risk is 10.1% and her 10 year risk is 5.7%. According to the ACR, ACS, and NCCN guidelines, an annual breast MRI exam along with mammogram is recommended if the patient's lifetime risk is 20% or greater. This exam was interpreted at Station ID: [id number]. NOTE: For mammograms, a report in lay terms will be sent to the patient. Approximately 15% of breast malignancies will not be visualized mammographically. In the management of a palpable breast mass, a negative mammogram must not discourage biopsy of a clinically suspicious lesion. Electronically Signed By: Derrek sams/nancie:02/10/2023 11:07:07 letter sent: Normal Exam ACR BI-RADS Category 2: Benign Finding(s) 3342F
== END ==
PROVIDERS: Family Provider Physician Assistant; PCP Internal Medicine; Referring Provider Internal Medicine; Visit Provider Internal Medicine
DX: Z12.31 Encounter for screening mammogram for malignant neoplasm of breast (principal)
CPT/HCPCS: 77063; 77067

== ENCOUNTER → 2024-02-16 15:04 | Outpatient (CLI) | payer OTHER, SELFPAY ==
[2024-02-16 16:49] LABS: Aspartate Aminotransferase 25 IU/L (14-36); BUN Creatinine Ratio 24.2 (6-22); Blood Urea Nitrogen 16 mg/dL (7-17); Calcium 9.6 mg/dL (8.4-10.2); Carbon Dioxide 22 mmol/L (22-32); Chloride 106 mmol/L (98-107); Cholesterol 208 mg/dL (140-199); Estimated Glomerular Filt Rate > 60 mL/min (>60); Glucose 81 mg/dL (80-110); HDL Cholesterol 67 mg/dL (40-60); HEMOLYSIS < 15 (0-50); LDL Cholesterol Calculated 105 mg/dL (<100); Potassium 4.1 mmol/L (3.4-5.1); Sodium 137 mmol/L (137-145); Triglycerides 181 mg/dL (35-150)
== END ==
PROVIDERS: Family Provider Physician Assistant; PCP Internal Medicine; Referring Provider Internal Medicine; Visit Provider Internal Medicine
DX: E78.2 Mixed hyperlipidemia (principal); R11.15 Cyclical vomiting syndrome unrelated to migraine
CPT/HCPCS: 36415; 80048; 80061; 84450

== ENCOUNTER → 2024-02-17 | Outpatient (CLI) | payer OTHER, SELFPAY ==
--- NOTE | 2024-02-17 11:41 | DI.RAD.S_ITS ---
PROCEDURE: XR DEXA AXIAL SKELETON INDICATIONS: osteopenia COMPARISON: [facility], LIUDMILA, XR DEXA AXIAL SKELETON, 03/19/2021, 10:17. FINDINGS: Lumbar Spine: Bone mineral density 0.821 g/cm2, T score -2.1, statistically significant decreased by 3.7 percent. Left Hip: Bone mineral density 0.766 g/cm2, T score -1.4, decreased by 4 percent. Left Femoral Neck: Bone mineral density 0.640 g/cm2, T score -1.9. Right Hip: Bone mineral density 0.786 g/cm2, T score -1.3. Right Femoral Neck: Bone mineral density 0.627 g/cm2, T score -2.0. Fracture Risk Calculation (when applicable): 10-year fracture risk of a major osteoporotic fracture 18 percent and of a hip fracture 4.1 percent. (T score greater or equal to -1.0 to: NORMAL) (T score from -1.1 to -2.4: OSTEOPENIA) (T score less than or equal to -2.5: OSTEOPOROSIS) IMPRESSION: Low bone mineral density (osteopenia) by WHO classification. Follow-up guidelines as follows: Osteoporosis: Consider a repeat DEXA and Vertebral Fracture Assessment (VFA) exam in 2 years or sooner if medically necessary, to reassess this patient's status. Osteopenia: Consider a repeat DEXA in 2-3 years to reassess this patient's status, or if there is a new clinical indication. Normal: Consider a repeat DEXA in 5 years or sooner, or if there is a new clinical indication. All treatment decisions require clinical judgment and consideration of individual patient factors, including patient preferences, comorbidities, previous drug use, risk factors not captured in the FRAX model (e.g., frailty, falls, vitamin D deficiency, increased bone turnover, interval significant decline in bone density ) and possible under- or over-estimation of fracture risk by FRAX. In addition, the NOF Guide recommends that FDA-approved medical therapies be considered in postmenopausal women and men age >= 50 years with a: * Hip or vertebral (clinical or morphometric) fracture * T-score of <=-2.5 at the spine or hip * Ten-year fracture probability by FRAX of >= 3% for hip fracture or >=20% for major osteoporotic fracture. People with diagnosed cases of osteoporosis or at high risk for fracture should have regular bone mineral density tests. For patients eligible for Medicare, routine testing is allowed once every 2 years. The testing frequency can be increased to one year for patients who have rapidly progressing disease, those who are receiving or discontinuing medical therapy to restore bone mass, or have additional risk factors. Dictated by: Pawel Aponte M.D. on 02/24/2024 at 9:25 Approved by: Pawel Aponte M.D. on 02/24/2024 at 9:32
== END ==
LOC: RAD 11:41
PROVIDERS: Family Provider Physician Assistant; PCP Internal Medicine; Referring Provider Internal Medicine; Visit Provider Internal Medicine
DX: M85.89 Other specified disorders of bone density and structure, multiple sites (principal)
CPT/HCPCS: 77080

== ENCOUNTER → 2024-03-06 07:54 | Outpatient (CLI) | payer OTHER, SELFPAY ==
--- NOTE | 2024-03-06 | DI.MG.S_ITS ---
BILATERAL DIGITAL SCREENING MAMMOGRAM 3D/2D WITH CAD: 03/06/2024 CLINICAL: Routine screening. Comparison is made to exams dated: 02/10/2023 mammogram, 12/03/2021 mammogram, and 09/11/2020 mammogram - [facility]. The breasts are heterogeneously dense, which may obscure small masses (category c / 51-75% glandular tissue). Current study was also evaluated with a Computer Aided Detection (CAD) system. There are benign post operative findings in the left breast. There is an asymmetry in the right breast posterior depth superior region seen on the mediolateral oblique view only. No other significant masses, calcifications, or other findings are seen in either breast. IMPRESSION: INCOMPLETE: NEED ADDITIONAL IMAGING EVALUATION The asymmetry in the right breast is indeterminate. A diagnostic mammogram and ultrasound is recommended. Based on the Tyrer Cuzick model (a risk assessment model) the patient's lifetime risk is 9.6% and her 10 year risk is 5.7%. According to the ACR, ACS, and NCCN guidelines, an annual breast MRI exam along with mammogram is recommended if the patient's lifetime risk is 20% or greater. This exam was interpreted at Station ID: [id number]. NOTE: For mammograms, a report in lay terms will be sent to the patient. Approximately 15% of breast malignancies will not be visualized mammographically. In the management of a palpable breast mass, a negative mammogram must not discourage biopsy of a clinically suspicious lesion. Electronically Signed By: Elizabeth Lopez M.D., Ph.D. eb/:03/06/2024 14:34:39 letter sent: Additional Imaging Needed ACR BI-RADS Category 0: Incomplete: Need Additional Imaging Evaluation
== END ==
PROVIDERS: Family Provider Physician Assistant; PCP Internal Medicine; Referring Provider Internal Medicine; Visit Provider Internal Medicine
DX: Z12.31 Encounter for screening mammogram for malignant neoplasm of breast (principal); R92.333 Mammographic heterogeneous density, bilateral breasts
CPT/HCPCS: 77063; 77067

== ENCOUNTER → 2024-04-05 10:13 | Outpatient (CLI) | payer OTHER, SELFPAY ==
--- NOTE | 2024-04-05 10:14 | DI.MG.S_ITS ---
UNILATERAL RIGHT DIGITAL DIAGNOSTIC MAMMOGRAM 3D/2D WITH ADDITIONAL VIEWS: 04/05/2024 CLINICAL: Additional evaluation requested from prior study. Comparison is made to exams dated: 03/06/2024 mammogram, 02/10/2023 mammogram, 12/03/2021 mammogram, and 09/11/2020 mammogram - [facility]. The breasts are heterogeneously dense, which may obscure small masses (category c / 51-75% glandular tissue). There is an asymmetry in the right breast posterior depth superior region seen on the mediolateral oblique view only. This is less prominent on additional views. No other significant masses or calcifications are seen in the breast. IMPRESSION: INCOMPLETE: NEED ADDITIONAL IMAGING EVALUATION The asymmetry in the right breast is indeterminate. An ultrasound is recommended. Based on the Tyrer Cuzick model (a risk assessment model) the patient's lifetime risk is 14.0% and her 10 year risk is 8.5%. According to the ACR, ACS, and NCCN guidelines, an annual breast MRI exam along with mammogram is recommended if the patient's lifetime risk is 20% or greater. This exam was interpreted at Station ID: [id number]. NOTE: For mammograms, a report in lay terms will be sent to the patient. Approximately 15% of breast malignancies will not be visualized mammographically. In the management of a palpable breast mass, a negative mammogram must not discourage biopsy of a clinically suspicious lesion. Electronically Signed By: Savannah Walker M.D. lk/:04/05/2024 10:42:20 ACR BI-RADS Category 0: Incomplete: Need Additional Imaging Evaluation
--- NOTE | 2024-04-05 10:14 | DI.US.S_ITS ---
LIMITED ULTRASOUND OF RIGHT BREAST: 04/05/2024 CLINICAL: Patient returns today to evaluate a focal asymmetry in the right breast. Comparison is made to exams dated: 04/05/2024 mammogram, 03/06/2024 mammogram, 02/10/2023 mammogram, and 12/03/2021 mammogram - [facility]. Real-time ultrasound of the right breast 9 o'clock, and retroareolar regions was performed on the areas of interest. Polo scale images of the real-time examination were reviewed. IMPRESSION: NEGATIVE There is no sonographic evidence of malignancy. There is no abnormality seen in the right breast to correspond with the screening mammography finding. This was much less conspicuous on additional views, suggesting superimposed normal fibroglandular tissue. A 1 year screening mammogram is recommended. This exam was interpreted at Station ID: [id number]. Electronically Signed By: Savannah hernandez/:04/05/2024 10:58:38 letter sent: Normal Exam ACR BI-RADS Category 1: Negative
== END ==
PROVIDERS: Family Provider Physician Assistant; PCP Internal Medicine; Referring Provider Internal Medicine; Visit Provider Internal Medicine
DX: R92.8 Other abnormal and inconclusive findings on diagnostic imaging of breast (principal); R92.333 Mammographic heterogeneous density, bilateral breasts
CPT/HCPCS: 76642; 77065; G0279

== ENCOUNTER → 2025-01-23 14:44 | Outpatient (CLI) | payer OTHER, SELFPAY ==
[2025-01-23 15:24] LABS: Hematocrit 37.3 % (36-46); Hemoglobin 12.8 g/dL (12.0-16.0); Mean Corpuscular HGB Conc 34.2 % (30-36); Mean Corpuscular Hemoglobin 31.1 PG (26-34); Mean Corpuscular Volume 90.9 fL (80-100); Platelet Count 248 X10^3/uL (150-400)
[2025-01-23 17:18] LABS: Alanine Aminotransferase 19 IU/L (<35); Albumin 4.4 g/dL (3.5-5.0); Albumin Globulin Ratio 1.7 (1.0-2.8); Alkaline Phosphatase 73 U/L (38-126); Blood Urea Nitrogen 15 mg/dL (7-17); Calcium 9.5 mg/dL (8.4-10.2); Carbon Dioxide 29 mmol/L (22-32); Chloride 102 mmol/L (98-107); Cholesterol 185 mg/dL (140-199); Estimated Glomerular Filt Rate > 60 mL/min (>60); Globulin 2.6 g/dL (1.7-4.1); Glucose 83 mg/dL (70-99); HDL Cholesterol 71 mg/dL (40-60); HEMOLYSIS < 15 (0-50); Potassium 4.2 mmol/L (3.4-5.1); Sodium 137 mmol/L (137-145); Total Protein 7.0 g/dL (6.3-8.2); Triglycerides 178 mg/dL (35-150)
[2025-01-23 17:50] LABS: TSH w/ Reflex to FT4 2.02 uIU/mL (0.47-4.68)
== END ==
PROVIDERS: PCP Internal Medicine; Referring Provider Internal Medicine; Visit Provider Internal Medicine
DX: R00.2 Palpitations (principal); E78.2 Mixed hyperlipidemia; R11.15 Cyclical vomiting syndrome unrelated to migraine
CPT/HCPCS: 36415; 80053; 80061; 84443; 85027

== ENCOUNTER → 2025-02-06 14:53 | Outpatient (CLI) | payer OTHER, SELFPAY ==
--- NOTE | 2025-02-06 14:54 | DI.ECHO.S_ITS ---
[facility]+ [facility] : : [address] : : [place] : : [id number] : : Phone: [phone] Echocardiogram Report + + :Name: NILDA SHIRLEY Study Date: 02/06/2025 Height: 69 in : :[facility] ReadingLocation: Weight: 194 lb : : Gender: Female BSA: 2.0 m2 : :: 1955 Age: 69 yrs BP: 128/75 mmHg: :Reason For Study: ATRIAL FIBRILLATION : :Ordering Physician: SLOANE, : :ARIE Performed By: Mckinley Tomlinson : :Referring: ARIE ANTON : + + Interpretation Summary The ejection fraction is estimated to be 50-55%. There is no significant valvular heart disease. Procedure: A two-dimensional transthoracic echocardiogram with color flow and Doppler was performed. The study quality was technically good. Comparison is made with the echocardiogram of 12/21/2018. The patient was in normal sinus rhythm during the exam. Left Ventricle: The left ventricle is normal in size. There is normal left ventricular wall thickness. There is no ventricular septal defect visualized. The ejection fraction is estimated to be 50-55%. There are no focal wall motion abnormalities. Diastolic parameters suggest a relaxation abnormality of the left ventricle, consistent with probable normal filling pressures. Right Ventricle: The right ventricle is not well visualized. Atria: The left atrium is mildly dilated. Right atrial size is normal. There is no Doppler evidence for an interatrial shunt. Mitral Valve: There is mild mitral annular calcification. The mitral valve leaflets are mildly calcified. There is no mitral regurgitation noted. Aortic Valve: The aortic valve is trileaflet. The aortic valve opens well. No aortic regurgitation is present. Tricuspid Valve: The tricuspid valve leaflets are thin and pliable. No tricuspid regurgitation. Pulmonic Valve: The pulmonic valve is not well seen, but is grossly normal. There is mild pulmonic regurgitation. Great Vessels: The aortic root is normal size. The dimensions of the ascending aorta are normal. The pulmonary artery is normal size. The inferior vena cava was not visualized. Pericardium/ Pleura There is no pericardial effusion. There is no pleural effusion. MMode/2D Measurements & Calculations LVIDd: 5.6 cm LVOT diam: 2.2 cm LVIDs: 3.8 cm Ao root diam: 3.4 cm FS: 31.5 % asc Aorta Diam: 3.6 cm EPSS: 0.92 cm IVSd: 0.91 cm LVPWd: 0.86 cm LV cardoso. diameter/BSA (cm/m^2): 2.8 LV sys. diameter/BSA (cm/m^2): 1.9 LA A2 area: 20.5 cm2 RA long axis: 4.6 cm LA A4 area: 21.5 cm2 RA area: 13.5 cm2 LA length (vol): 5.2 cm RA vol: 33.8 ml LA vol: 71.4 ml RA : 16.6 ml/m2 LA vol index: 35.0 ml/m2 Doppler Measurements & Calculations Ao V2 max: 116.1 cm/sec LVOT Max Blaise: 96.0 cm/sec Ao V2 mean: 75.5 cm/sec LV V1 max P.7 mmHg Ao max P.4 mmHg LV V1 VTI: 24.5 cm Ao mean P.6 mmHg NIALL(I,D): 3.7 cm2 Ao V2 VTI: 25.3 cm NIALL(V,D): 3.2 cm2 sev ratio: 0.97 NIALL indexed to BSA (cm^2/m^2): 1.8 MV E max blaise: 56.5 cm/sec PA V2 max: 89.2 cm/sec MV A max blaise: 63.4 cm/sec PA V2 mean: 61.3 cm/sec MV E/A: 0.89 PA mean P.6 mmHg Med Peak E' Blaise: 6.2 cm/sec PA pr(Accel): 29.3 mmHg E/E' med: 9.1 Lat Peak E' Blaise: 7.4 cm/sec E/E' lat: 7.7 E/e' average: 8.4 MV dec time: 0.22 sec SV(LVOT): 93.4 ml Reading Physician:04:[id number] PM
== END ==
LOC: ECHO 14:53
PROVIDERS: PCP Internal Medicine; Referring Provider Internal Medicine; Visit Provider Internal Medicine
DX: I48.91 Unspecified atrial fibrillation (principal); I48.92 Unspecified atrial flutter; I34.81 Nonrheumatic mitral (valve) annulus calcification; I37.1 Nonrheumatic pulmonary valve insufficiency
CPT/HCPCS: 93306

== ENCOUNTER → 2025-02-08 13:47 | Outpatient (CLI) | payer OTHER, SELFPAY | LOC: CAR 13:48 | PROVIDERS: PCP Internal Medicine; Referring Provider Internal Medicine; Visit Provider Internal Medicine | DX: R00.2 Palpitations (principal) | CPT/HCPCS: 93246 ==

== ENCOUNTER → 2025-04-18 09:17 | Outpatient (CLI) | payer OTHER, SELFPAY ==
--- NOTE | 2025-04-18 09:18 | DI.MG.S_ITS ---
MM screening mammo BI: 04/18/2025. BI-RADS: 2 SEE ADDENDUM AT END OF THIS REPORT CLINICAL: 69-year old female for bilateral screening mammogram. Tyrer-Cuzick lifetime risk of 13.5%. No personal or first-degree family history of breast cancer. Current reported family history of breast cancer: maternal grandmother. The patient had a prior left breast biopsy. PRIOR EXAMS 04/05/2024, 03/06/2024, 02/10/2023, 12/03/2021. MAMMOGRAPHY TECHNIQUE: 2D and 3D (tomosynthesis) digital mammographic views obtained, with additional images as needed for full coverage. Current study was also evaluated with a Computer Aided Detection (CAD) system. DENSITY C. The breasts are heterogeneously dense, which may obscure small masses. MAMMOGRAPHY FINDINGS Right: CC only, Inner, Middle depth: Asymmetry needing additional imaging evaluation. Left: Benign-appearing post-surgical changes noted on the left. There are no suspicious masses, calcifications, or other findings in the breast. IMPRESSION: Right (Asymmetry): CC only, Inner, Middle depth * Incomplete - asymmetry needing additional imaging evaluation. Left * No evidence of malignancy with benign findings. SEE UPDATED RECOMMENDATIONS IN ADDENDUM AT END OF THIS REPORT RECOMMENDATIONS Right: CC only, Inner, Middle depth * Further evaluation with diagnostic mammography and diagnostic ultrasound. Ultrasound to be performed only if needed. OVERALL ASSESSMENT CATEGORY BI-RADS-0: Incomplete - Need Additional Imaging Evaluation. ELECTRONICALLY SIGNED: Sabina Wilson M.D. on 04/18/2025 at 12:23:13 PM PT ADDENDA: * ADDENDUM: Upon further review, the asymmetry in the right breast appears stable compared to prior mammograms dating back to at least 04/18/2018, suggestive of a benign etiology. CATEGORY: BI-RADS-2: Benign. BI-RADS changed from 0. ELECTRONICALLY SIGNED: Sabina Wilson M.D. on 04/18/2025 at 12:26:26 PM. UPDATED RECOMMENDATIONS Bilateral * Annual screening mammography. Interpreting Station ID: [id number]
== END ==
LOC: MAMMO 09:18
PROVIDERS: PCP Internal Medicine; Referring Provider Internal Medicine; Visit Provider Internal Medicine
DX: Z12.31 Encounter for screening mammogram for malignant neoplasm of breast (principal); R92.333 Mammographic heterogeneous density, bilateral breasts; Z80.3 Family history of malignant neoplasm of breast
CPT/HCPCS: 77063; 77067